=== PATIENT | female | born 1950 | race Caucasian/White ===

== ENCOUNTER 2021-12-25 10:48 | Emergency (ER) | payer BC, OTHER ==
[~2021-12-25] VITALS: Ht 167.6 cm; Wt 79.4 kg
[2021-12-25 13:26] VITALS: BP 149/84
== END 2021-12-25 13:51 | disposition home or self-care (01) ==
LOC: ER 10:48
DX: S00.33XA Contusion of nose, initial encounter (principal); S09.93XA Unspecified injury of face, initial encounter; W01.198A Fall on same level from slipping, tripping and stumbling with subsequent striking against other object, initial encounter; Y93.89 Activity, other specified; Y92.89 Other specified places as the place of occurrence of the external cause; Y99.8 Other external cause status
CPT/HCPCS: 70450; 70486

== ENCOUNTER 2024-12-16 15:03 | Inpatient (IN) | payer OTHER ==
[2024-12-16] VITALS (7 sets, daily range): BP systolic 142–153; BP diastolic 64–80; PULSE 75–88; RESP 14–18; TEMP 98.2–98.9; O2SAT 94–96
[~2024-12-16] VITALS: Ht 167.6 cm; Wt 88.6 kg
[2024-12-16] MEDS: HEPARIN SODIUM (PORCINE) 5000 UNITS/ML 1ML VIAL ONE ×2 (07:59→19:36)
--- NOTE | 2024-12-16 15:34 | ED.PDOC ---
History of Present Illness HPI Comments 73-year-old female came to the ER complaining of chest pain. Chest pain started after altercation with her dog. She started getting anxious could not stop her anxiety which brought her to the ER. She does have a history of hyper cholesterol for which she takes medication. Denies any past surgical other med ical history. Denies any other symptoms. Chief Complaint: Chest Pain Time Seen by MD: 15:12 Primary Care Provider: ketty Osorio Notes: Nurses Notes, Medications, Allergies Allergies: Coded Allergies: Codeine (Verified Allergy, Unknown, 12/25/21) Penicillins (Verified Allergy, Unknown, 12/25/21) Tetanus Toxoids (Verified Allergy, Unknown, 12/25/21) Information Source: Patient Mode of Arrival: Ambulatory Severity: Moderate Past Medical History PAST MEDICAL HISTORY: Denies Surgical History: Denies all surgeries WAFER FABRICATION TECHNICIAN History: No Pertinent WAFER FABRICATION TECHNICIAN History Family History Family History: Unknown Social History Smoker: Non-Smoker Alcohol: Denies ETOH Use Drugs: Denies Drug Use Lives In: Home Constitutional: denies: chills, diaphoresis, fatigue, fever, malaise, sweats, weakness, others EENTM: denies: blurred vision, double vision, ear bleeding, ear discharge, ear drainage, ear pain, ear ringing, eye pain, eye redness, hearing loss, mouth pain, mouth swelling, nasal discharge, nose bleeding, nose congestion, nose pain, photophobia, tearing, throat pain, throat swelling, voice changes, others Respiratory: denies: cough, hemoptysis, orthopnea, SOB at rest, shortness of breath, SOB with excertion, stridor, wheezing, others Cardiovascular: reports: chest pain; denies: dizzy spells, diaphoresis, Dyspnea on exertion, edema, irregular heart beat, left arm pain, lightheadedness, palpitations, PND, syncope, others Gastrointestinal: denies: abdomen distended, abdominal pain, blood streaked bowels, constipated, diarrhea, dysphagia, difficulty swallowing, hematemesis, melena, nausea, poor appetite, poor fluid intake, rectal bleeding, rectal pain, vomiting, others Genitourinary: denies: abnormal vagina bleeding, burning, dyspareunia, dysuria, flank pain, frequency, hematuria, incontinence, pain, , vagina discharge, urgency, others Neurological: denies: dizziness, fainting, headache, left sided numbness, left sided weakness, numbness, paresthesia, pre-existing deficit, right sided numbness, right sided weakness, seizure, speech problems, tingling, tremors, weakness, others Musculoskeletal: denies: back pain, gout, joint pain, joint swelling, muscle pain, muscle stiffness, neck pain, others Integumetry: denies: bruises, change in color, change in hair/nails, dryness, laceration, lesions, lumps, rash, wounds, others Allergic/Immunocompromised: denies: Difficulty Healing, Frequent Infections, Hives, Itching, others Hematologic/Lymphatic: denies: anemia, blood clots, easy bleeding, easy bruising, swollen glands, others Endocrine: denies: excessive hunger, excessive sweating, excessive thirst, excessive urination, flushing, intolerance to cold, intolerance to heat, unexplained weight gain, unexplained weight loss, others Psychiatric: denies: anxiety, bipolar disorder, depression, hopeless, panic disorder, schizophrenia, sleepless, suicidal, others Physical Exam General Appearance: Moderate Distress HEENT: Normal ENT Inspection, Pharynx Normal, TMs Normal Neck: Full Range of Motion, Non-Tender, Normal, Normal Inspection Respiratory: Chest Non-Tender, Lungs Clear, No Accessory Muscle Use, No Respiratory Distress, Normal Breath Sounds Cardiovascular: No Edema, No JVD, No Murmur, No Gallop, Normal Peripheral Pulses, Regular Rate/Rhythm Breast Exam: Deferred Gastrointestinal: No Organomegaly, Non Tender, No Pulsatile Mass, Normal Bowel Sounds, Soft Genitalia: Deferred Pelvic: Deferred Rectal: Deferred Extremities: No calf tenderness, Normal capillary refill, Normal inspection, Normal range of motion, Non-tender, No pedal edema Musculoskeletal : Apperance: Normal Neurologic: Alert, conche operator II-XII nml as Tested, No Motor Deficits, Normal Affect, Normal Mood, No Sensory Deficits Cerebellar Function: Normal Reflexes: Normal Skin: Dry, Normal Color, Warm Peripheral Pulses: 3+ Radial (R), 3+ Radial (L) Lymphatic: No Adenopathy Was a procedure done? Was a procedure done?: No EKG EKG : Cardiac Rhythm: NSR Differential Dx Considerations may include: Chest pain Electrolyte imbalance X-Ray, Labs, Meds, VS Vital Signs Date Time Temp Pulse Resp B/P (MAP) Pulse Ox O2 Delivery O2 Flow Rate FiO2 12/16/24 15:12 96 12/16/24 15:05 98.3 97 18 163/54 (90) 97 98.3 Lab Test 12/16/24 15:10 Range/Units Troponin I High Sensitivity 67 *H </=34 ng/L Patient alert. Complaining of chest pain. Blood pressure elevated. Answering all questions. Chest pain started after altercation with her dog. Cardiac marker elevated. Was given Lovenox. EKG does not show any acute changes. Explained to the patient. Continue monitoring. Time of 1ST Reevaluation: 16:02 Reevaluation 1ST: Unchanged Patient Education/Counseling: Diagnosis, Treatment, Prognosis Family Education/Counseling: No Family Present SEPSIS Sepsis Screen Physician Orders Electrocardigram (12/16/24 15:05) Troponin-I Hs (12/16/24 16:05) Troponin-I Hs (12/16/24 18:05) Electrocardigram (12/16/24 16:05) Electrocardigram (12/16/24 18:05) Vital Signs Date Time Temp Pulse Resp B/P (MAP) Pulse Ox O2 Delivery O2 Flow Rate FiO2 12/16/24 15:12 96 12/16/24 15:05 98.3 97 18 163/54 (90) 97 98.3 Departure 1 Departure Time of Disposition: 16:03 Impression: Primary Impression: NSTEMI (non-ST elevated myocardial infarction) Disposition: 09 ADMITTED INPATIENT Admit to: Med Surg Condition: Guarded Critical Care Note Critical Care Time?: Yes (90 min-critical care time only) Stability Stability form required: No Heart Score Heart Score: Heart Score Response (Comments) Value History Slightly Suspicious 0 EKG Normal 0 Age >65 2 Risk Factors >3 or Hx ASHD 2 Troponin Normal limit 0 Total 4 BETZY PINA MD Dec 16, 2024 15:34
[2024-12-16 16:23] LABS: Hematocrit 41.7 % (36.0-46.0); Hemoglobin 14.1 g/dL (12.2-16.2); Mean Corpuscular Hemoglobin 31.4 pg (28.0-32.0); Mean Corpuscular Volume 93.0 fL (80.0-100.0); Nucleated Red Blood Cells % 0.2 %
[2024-12-16 16:30] LABS: Chloride 107 mmol/L (98-107); Potassium 4.1 mmol/L (3.5-5.1); Sodium 141 mmol/L (136-145)
[2024-12-16 16:32] LABS: Anion Gap 11 (5-15); BUN/Creatinine Ratio 18.3 (10.0-20.0); Blood Urea Nitrogen 15 mg/dL (9-23)
[2024-12-16 16:33] LABS: Calcium 9.1 mg/dL (8.7-10.4); Carbon Dioxide 23 mmol/L (20-31); Glucose 126 mg/dL (74-106)
[2024-12-16 16:41] LABS: Urine Protein, UAD Negative (Negative)
[2024-12-16] MEDS: ENOXAPARIN SOD 80 MG/0.8ML SYRINGE SC ONE (16:42)
[2024-12-16] MEDS: fentaNYL CITRATE 100 MCG/2 ML VL ONE (19:31)
[2024-12-16] MEDS: ANGIOMAX 250 MG VIAL IV ONE (19:31)
[2024-12-16] MEDS: VERAPAMIL 2.5MG/ML INJ 2ML VIAL IV ONE (19:31)
[2024-12-16] MEDS: LIDOCAINE 2%HCL (LOCAL ANESTH.) INJ 20ML MDV ONE (19:32)
[2024-12-16] MEDS: SODIUM CHL 0.9% 50 ML ONE (19:32)
[2024-12-16] MEDS: MIDAZOLAM HCL 2MG/2ML 2ml VIAL (1mg/ml) ONE (19:32)
[2024-12-16] MEDS: HEPARIN SODIUM (PORCINE) 5000 UNITS/ML 1ML VIAL IV ONE (19:44)
[2024-12-16] MEDS ORDERED: ONDANSETRON HCL 4 MG/2 ML VIAL IV PRN ×2 (19:45→22:45)
[2024-12-16] MEDS ORDERED: NITROGLYCERIN 0.4 MG SL TAB SL PRN ×2 (19:45)
[2024-12-16] MEDS ORDERED: ACETAMINOPHEN 325 MG TAB PO PRN (19:45)
[2024-12-16] MEDS ORDERED: MORPHINE SULFATE 4 MG/ML SYR/VIAL IV PRN ×2 (19:45→22:45)
[2024-12-16] MEDS: IODIXANOL 320MG/ML 100ML BTL IV ONE (19:46)
--- NOTE | 2024-12-16 19:56 | DVHHP2 ---
History of Present Illness Reason for Visit: Chest pain History of Present Illness 73-year-old female past medical history hyperlipidemia surgical history hysterectomy gallbladder surgery chief complaint patient states that she was out in his apartment walk in her puppy people came out of nowhere and ran after her puppy she states she was running from the pit bull with her puffy which caused her to have a stressful event she went home and then she started having midsternal chest pain radiates to her left chest wall and up to the jaw felt like a pressure pain she had no weakness no dizziness no tearing sensation in her chest she has no history [place] in the past no family history of [place] patient has not had any cardiac workup just a EKG in March of 2024 primary doctor stated everything was fine. Patient is lying in his bed a little afraid because all the things that is going on but EKG shows STEMI patient will be sent directly to the manager labor relations with Dr. Silva to procede will admit to [facility] after procedure is completed and will follow with cards team Past Medical History See HPI above Past Surgical History See HPI above Family History Reviewed, non-contributory to the management of this case. Past Social History The patient lives at home, denies smoking, alcohol or illicit drugs abuse. Review of Systems Constitutional: No: Fever, Chills, Sweats, Weakness, Malaise, Other Eyes: No: Pain, Vision change, Conjunctivae inflammation, Eyelid inflammation, Other, Redness Respiratory: Shortness of breath; No: Cough, Dry, SOB with excertion, Wheezing, Hemoptysis, Pleuritic Pain, Sputum, Wheezing, Other Cardiovascular: Chest Pain; No: Palpitations, Orthopnea, Paroxysmal Noc. Dyspnea, Edema, Lt Headedness, Other Gastrointestinal: No: Nausea, Vomiting, Abdominal Pain, Diarrhea, Constipation, Melena, Hematochezia, Other Genitourinary: No Dysuria, No Frequency, No Incontinence, No Hematuria, No Retention, No Other Musculoskeletal: No: other, neck pain, shoulder pain, arm pain, back pain, hand pain, leg pain, foot pain Skin: No: Rash, Lesions, Jaundice, Bruising, Other Neurological: No: Weakness, Numbness, Incoordination, Change in speech, Confusion, Seizures, Other Allergies: Coded Allergies: Codeine (Verified Allergy, Unknown, 12/25/21) Penicillins (Verified Allergy, Unknown, 12/25/21) Tetanus Toxoids (Verified Allergy, Unknown, 12/25/21) Exam Vital Signs Vital Signs Date Time Temp Pulse Resp B/P (MAP) Pulse Ox O2 Delivery O2 Flow Rate FiO2 12/16/24 18:01 87 9 159/66 (97) 97 12/16/24 17:30 Room Air* 0 21 12/16/24 16:24 98.2 98.2 General Appearance: Alert, Oriented X3, Cooperative, No acute distress HEENT: Atraumatic, PERRLA, EOMI, Mucous membr. moist/pink Respiratory: Clear to auscultation, Normal air movement Cardiovascular: Regular rate, Normal S1, Normal S2, No murmurs Abdominal: Normal bowel sounds, Soft, No tenderness, No hepatospenomegaly, No masses Extremities: No clubbing, No cyanosis, No edema, Normal pulses, No tenderness/swelling Skin: No rashes, No breakdown, No significant lesion Neuro: Other (Neuro nonfocal) Psych/Mental Status: Mental status NL, Mood NL Labs/Xrays Patient labs CBC CMP troponin Mag phosphorus order EKG which consistent with STEMI Labs Test 12/16/24 18:00 12/16/24 16:31 12/16/24 15:10 Range/Units Troponin I High Sensitivity 1501 *H </=34 ng/L Urine Color Colorless Yellow Urine Clarity Clear Clear Urine pH 7.0 5.0-9.0 Urine Specific [place] 1.007 1.001-1.035 Urine Protein Negative Negative Urine Ketones Negative Negative Urine Blood Negative Negative /uL Urine Nitrite Negative Negative Urine Bilirubin Negative Negative Urine Urobilinogen Normal Negative mg/dL Urine Leukocyte Esterase 2+ Negative /uL Urine RBC 1 0 - 4 /hpf Urine Microscopic WBC 2 0-5 /HPF Urine Squamous Epithelial Cells Few <5 /hpf Urine Bacteria Few H None Seen /hpf Urine Glucose Normal Normal mg/dL White Blood Count 4.5 4.4-10.8 10^3/uL Red Blood Count 4.49 4.0-5.20 10^6/uL Hemoglobin 14.1 12.2-16.2 g/dL Hematocrit 41.7 36.0-46.0 % Mean Corpuscular Volume 93.0 80.0-100.0 fL Mean Corpuscular Hemoglobin 31.4 28.0-32.0 pg Mean Corpuscular Hemoglobin Concent 33.7 32.0-36.0 g/dL Red Cell Distribution Width 12.2 11.8-14.3 % Platelet Count 220 140-450 10^3/uL Mean Platelet Volume 8.8 6.9-10.8 fL Neutrophils (%) (Auto) 35.3 L 37.0-80.0 % Lymphocytes (%) (Auto) 47.6 10.0-50.0 % Monocytes (%) (Auto) 8.9 0.0-12.0 % Eosinophils (%) (Auto) 7.5 H 0.0-7.0 % Basophils (%) (Auto) 0.7 0.0-2.0 % Neutrophils # (Auto) 1.6 1.6-8.6 10 ^3/uL Lymphocytes # (Auto) 2.1 0.4-5.4 10 ^3/uL Monocytes # (Auto) 0.4 0-1.3 10 ^3/uL Eosinophils # (Auto) 0.3 0-0.8 10 ^3/uL Basophils # (Auto) 0 0-0.2 10 ^3/uL Nucleated Red Blood Cells 0.2 % Sodium Level 141 136-145 mmol/L Potassium Level 4.1 3.5-5.1 mmol/L Chloride Level 107 98-107 mmol/L Carbon Dioxide Level 23 20-31 mmol/L Anion Gap 11 5-15 Blood Urea Nitrogen 15 9-23 mg/dL Creatinine 0.82 0.550-1.02 mg/dL Glomerular Filtration Rate Calc 76 >90 mL/min BUN/Creatinine Ratio 18.3 10.0-20.0 Serum Glucose 126 H 74-106 mg/dL Calcium Level 9.1 8.7-10.4 mg/dL Assessment/Plan Assessment/Plan acute nstemi/chest pain current ekg nstemi trop negative x3 ordered ordered echo fu results dr silva to take pt to manager labor relations ordered heparin ordered asa, atorvastin ordered morphine and nitro for chest pain control pain control pt to go to manager labor relations/Initiate CP protocol ordered Aspirin, atorvastatin, by cards in er ordered nitro as needed for chest pain Oxygen as needed can order by rounding lizabeth Lipid panel, Lifestyle modification hld ordered lipitor fen/ppx heparin npo until cleared by cards no gi ppx since pt without hx of gerds or gi bleed plan admit to [facility] post cath and cards to follow Plan discussed with: Patient Date of Service: Dec 16, 2024 Billing Provider: MARY GRACE VALENTINE DNP Common Visit Codes: [id number] INP/OBS CARE (HIGH), 97048-[id number] CARE 30- 74 MIN (Total critical care time: Approximately 45 minutes This critical care time included obtaining a history; examining the patient; pulse oximetry; ordering and review of studies; arranging urgent treatment with development of a management plan; evaluation of patient's response to treatment; frequent reassessment; and, discussions with other providers.) MARY GRACE VALENTINE DNP Dec 16, 2024 19:56
--- NOTE | 2024-12-16 20:40 | DVHINCON2 ---
Date Seen: Dec 16, [address] Pearce Reason for Consultation Chest pain History of Present Illness 73-year-old lady who was walking her dog when they were confronted by pit bull. The patient began experiencing chest pain. Her symptoms increased in severity and intensity. She came to the emergency room. She was found to have abnormal ST segment changes and elevated troponins for which cardiac evaluation was requested. Code STEMI was called. Patient was sent to the cardiac catheterization laboratory. Past Medical History No significant past medical history of significance. No previous history of CAD hypertension diabetes thyroid disorders bleeding disorders or endocrinopathies. Past Surgical History Negative past surgical history Allergies: Coded Allergies: Codeine (Verified Allergy, Unknown, 12/25/21) Penicillins (Verified Allergy, Unknown, 12/25/21) Tetanus Toxoids (Verified Allergy, Unknown, 12/25/21) Current Medications Current Medications Medications (Trade) Dose Ordered Sig/Amos Route PRN Reason Start Time Stop Time Status Last Admin Aspirin 81 mg DAILY PO 12/17/24 10:00 UNV Atorvastatin Calcium (Lipitor) 40 mg HS PO 12/16/24 22:00 UNV Morphine Sulfate 2 mg Q30MP PRN IV FOR CHEST PAIN 12/16/24 19:45 UNV Acetaminophen (Tylenol Tablet) 325 mg Q4HP PRN PO FOR HEADACHE 12/16/24 19:45 UNV Docusate Sodium (Colace Capsule) 100 mg DAILY PO 12/17/24 10:00 UNV Nitroglycerin (Ntrostat Sublingual) 0.4 mg Q5MINP PRN SL FOR CHEST PAIN 12/16/24 19:45 UNV Ondansetron HCl (Zofran) 4 mg Q4HP PRN IV NAUSEA / VOMITING 12/16/24 19:45 UNV Nitroglycerin (Ntrostat Sublingual) 0.4 mg Q5MINP PRN SL FOR CHEST PAIN 12/16/24 19:45 UNV Review of Systems Review of systems from a constitutional standpoint negative for fevers chills or weight loss. Cardiac and respiratory as noted above. No history of GI or musculoskeletal abnormalities. Hematologic oncologic and dermatologic negative. Vital Signs Vital Signs Date Time Temp Pulse Resp B/P (MAP) Pulse Ox O2 Delivery O2 Flow Rate FiO2 12/16/24 20:20 98.9 84 18 151/77 (101) 94 98.9 12/16/24 17:30 Room Air* 0 21 Physical Exam HEENT examination is otherwise unremarkable. She is thin. Bitemporal wasting. Enophthalmos noted. Orally well hydrated. Trachea central neck supple thyroid is nonpalpable is no jugular distention no carotid bruits. Lungs reveal good air entry no rales or rhonchi. Heart exam reveals regular S1- S2 soft S4. Abdominal examination is unremarkable. Extremities show adequate perfusion without clubbing cyanosis no edema. Neurologically intact. Integumentary is otherwise within normal limits. Labs/Diagnostic Data Labs Test 12/16/24 18:00 12/16/24 16:31 12/16/24 15:10 Range/Units Troponin I High Sensitivity 1501 *H </=34 ng/L Urine Color Colorless Yellow Urine Clarity Clear Clear Urine pH 7.0 5.0-9.0 Urine Specific [place] 1.007 1.001-1.035 Urine Protein Negative Negative Urine Ketones Negative Negative Urine Blood Negative Negative /uL Urine Nitrite Negative Negative Urine Bilirubin Negative Negative Urine Urobilinogen Normal Negative mg/dL Urine Leukocyte Esterase 2+ Negative /uL Urine RBC 1 0 - 4 /hpf Urine Microscopic WBC 2 0-5 /HPF Urine Squamous Epithelial Cells Few <5 /hpf Urine Bacteria Few H None Seen /hpf Urine Glucose Normal Normal mg/dL White Blood Count 4.5 4.4-10.8 10^3/uL Red Blood Count 4.49 4.0-5.20 10^6/uL Hemoglobin 14.1 12.2-16.2 g/dL Hematocrit 41.7 36.0-46.0 % Mean Corpuscular Volume 93.0 80.0-100.0 fL Mean Corpuscular Hemoglobin 31.4 28.0-32.0 pg Mean Corpuscular Hemoglobin Concent 33.7 32.0-36.0 g/dL Red Cell Distribution Width 12.2 11.8-14.3 % Platelet Count 220 140-450 10^3/uL Mean Platelet Volume 8.8 6.9-10.8 fL Neutrophils (%) (Auto) 35.3 L 37.0-80.0 % Lymphocytes (%) (Auto) 47.6 10.0-50.0 % Monocytes (%) (Auto) 8.9 0.0-12.0 % Eosinophils (%) (Auto) 7.5 H 0.0-7.0 % Basophils (%) (Auto) 0.7 0.0-2.0 % Neutrophils # (Auto) 1.6 1.6-8.6 10 ^3/uL Lymphocytes # (Auto) 2.1 0.4-5.4 10 ^3/uL Monocytes # (Auto) 0.4 0-1.3 10 ^3/uL Eosinophils # (Auto) 0.3 0-0.8 10 ^3/uL Basophils # (Auto) 0 0-0.2 10 ^3/uL Nucleated Red Blood Cells 0.2 % Sodium Level 141 136-145 mmol/L Potassium Level 4.1 3.5-5.1 mmol/L Chloride Level 107 98-107 mmol/L Carbon Dioxide Level 23 20-31 mmol/L Anion Gap 11 5-15 Blood Urea Nitrogen 15 9-23 mg/dL Creatinine 0.82 0.550-1.02 mg/dL Glomerular Filtration Rate Calc 76 >90 mL/min BUN/Creatinine Ratio 18.3 10.0-20.0 Serum Glucose 126 H 74-106 mg/dL Calcium Level 9.1 8.7-10.4 mg/dL Magnesium Level 2.2 1.6-2.6 mg/dL Assessment Abnormal EKG with abnormal troponins. Patient with chest pain. Consider ST- elevation myocardial infarction. Plan/Recommendation Patient will be sent to the cardiac catheterization laboratory soon as possible. Risks and benefits explained. Patient agrees to undergo cardiac catheterization. Plan discussed with: Patient, Spouse NYHA Physical activity limitations: Class1(None)absent sob, Date of Service: Dec 16, 2024 Billing Provider: GIANNA BUTLER Sr., MD Cardiology Common Codes: [id number] INP/OBS CARE (High) GIANNA BUTLER Sr., MD Dec 16, 2024 20:40
--- NOTE | 2024-12-16 20:45 | DVHOP2 ---
Operative Report - 2 Report Details Date: 12/16/24 Preop Diagnosis: CAD Postop Diagnosis: Normal coronaries Surgeon: Gianna Silva MD Anesthesiologist: Conscious sedation Anesthesia: Mac, Local Consent: The patient was informed of the risks and benefits of the procedure. These include but are not limited to complications of anesthesia, postoperative infection, incomplete relief of symptoms, recurrence of symptoms, damage to blood vessels, nerves and tendons, deep venous thrombosis, pulmonary embolism and possible need for repeat surgery in the future. Complications: No complications Findings: Normal coronaries Indications for Surgery: Chest pain, abnormal troponins Name of Procedure Performed Left heart catheterization. Bilateral cine coronary angiography. Left ventriculography. Procedure Details Procedure Details: Prior local anesthesia with 2% lidocaine to the right wrist and full informed consent obtained the patient was prepped and draped in usual fashion followed by placement of a six German sheath into the radial artery through which a 3.0 EBU guiding catheter was placed and used to perform ventriculography and cannulation of both right and left coronary ostia without complications. Hemodynamics: Aortic blood pressure was 130/70. End-diastolic pressure was eight. There was no gradient across the aortic valve on pullback. Coronary anatomy: The RCA is a large vessel it is normal in its proximal mid and distal segments. The PDA and posterolateral branches are normal. Left main is large and normal. Left anterior descending is a large vessel with two diagonals free of significant disease. The circumflex is a large vessel with two marginals free of significant disease. This is codominant. Ventriculography was performed in the MAURER projection with an EF of about 65% Impression: Normal left ventricular end-diastolic pressure at rest. Normal left ventricular ejection fraction. No significant coronary artery disease. Recommendations: We will continue with medical therapy and risk factor modification to continue. Condition Good Disposition Still a Patient Date of Service: Dec 16, 2024 Billing Provider: GIANNA SILVA Sr., MD Cardiology Common Codes: [id number] INP/OBS CARE (High) Cardiology Procedure Codes: 78081-VNXY HEART CATH W/INTRA INJ GIANNA SILVA Sr., MD Dec 16, 2024 20:45
[2024-12-16] MEDS ORDERED: ATORVASTATIN 20 MG TAB PO SCH (22:00)
--- NOTE | 2024-12-16 22:07 | DVH ---
CHEST RADIOGRAPH Indication: CP Technique: Single frontal view of the chest was obtained Comparison: None FINDINGS: Lines and Tubes: None Lungs: No focal consolidation. Pleura: No effusion. No pneumothorax. Cardiomediastinal contours: Unremarkable Bones: No acute osseous abnormality. IMPRESSION: 1. No acute cardiopulmonary disease.
[2024-12-16] MEDS: ATORVASTATIN 20 MG TAB ONE (23:00)
[2024-12-16] MEDS: ATORVASTATIN 20 MG TAB PO ONE (23:19)
[2024-12-17] VITALS (8 sets, daily range): BP systolic 123–175; BP diastolic 67–88; PULSE 77–88; RESP 18–19; TEMP 96.8–98.8; O2SAT 96–99
[2024-12-17] MEDS ORDERED: ATOR10TA52 PO (01:08)
[2024-12-17] MEDS: ACETAMINOPHEN 325 MG TAB PO PRN (06:52)
[2024-12-17 06:56] LABS: Hematocrit 41.4 % (36.0-46.0); Hemoglobin 14.3 g/dL (12.2-16.2); Mean Corpuscular Hemoglobin 31.9 pg (28.0-32.0); Mean Corpuscular Volume 92.6 fL (80.0-100.0); Nucleated Red Blood Cells % 0.0 %
--- NOTE | 2024-12-17 07:00 | ECG ---
[facility] Test Date: 2024-12-16 Test Time: 19:02:41 Pat Name: SUHA THOMPSON Department: ED Room: [facility]6T A Gender: F Supervisor Boarding: nena : 1950 Requested By: JULIANA OLSON Order Number: [id number] Reading MD: Mian Silva Measurements Intervals [place] Rate: 96 P: 65 WI: 161 QRS: 48 QRSD: 91 T: 55 QT: 367 QTc: 464 Interpretive Statements Sinus rhythm Low voltage, precordial leads Electronically Signed On 12-18-2024 20:10:36 PDT by Mian Silva Please click the below link to view image of tracing.
[2024-12-17 07:23] LABS: Alanine Aminotransferase 11 U/L (7-40); Albumin 4.2 g/dL (3.2-4.8); Alkaline Phosphatase 70 U/L (46-116); Calcium 9.7 mg/dL (8.7-10.4); Carbon Dioxide 26 mmol/L (20-31); Glucose 102 mg/dL (74-106)
[2024-12-17 07:24] LABS: Anion Gap 8 (5-15); BUN/Creatinine Ratio 18.8 (10.0-20.0); Bilirubin, Total 0.8 mg/dL (0.2-1.0); Blood Urea Nitrogen 13 mg/dL (9-23); Potassium 4.1 mmol/L (3.5-5.1); Sodium 144 mmol/L (136-145); Total Protein 6.3 g/dL (5.7-8.2)
[2024-12-17 07:30] LABS: Chloride 110 mmol/L (98-107)
[2024-12-17] MEDS: NITROGLYCERIN 0.4 MG SL TAB SL PRN (09:22)
[2024-12-17] MEDS: DOCUSATE SOD 100 MG CAP PO SCH (09:34)
[2024-12-17] MEDS ORDERED: DOCUSATE SOD 100 MG CAP PO SCH (10:00)
--- NOTE | 2024-12-17 11:01 | DVHPN2 ---
Subjective The patient is seen and examined at bedside. Complain of chest pain. Reviewed: Care Plan, H&P, Labs, Medications, Previous Orders, Radiology Changes from previous H/P or p: No Changes Eyes: No Pain, No Vision change, No Conjunctivae inflammation, No Eyelid inflammation, No Other, No Redness Cardiovascular: Chest Pain; No Palpitations, No Orthopnea, No Paroxysmal Noc. Dyspnea, No Edema, No Lt Headedness, No Other Respiratory: No Cough, No Dry; Shortness of breath; No SOB with excertion, No Wheezing, No Hemoptysis, No Pleuritic Pain, No Sputum, No Other Gastrointestinal: No Nausea, No Vomiting, No Abdominal Pain, No Diarrhea, No Constipation, No Melena, No Hematochezia, No Other Genitourinary: No Dysuria, No Frequency, No Incontinence, No Hematuria, No Retention, No Other Musculoskeletal: No other, No neck pain, No shoulder pain, No arm pain, No back pain, No hand pain, No leg pain, No foot pain Skin: No Rash, No Lesions, No Jaundice, No Bruising, No Other Objective Vitals Vital Signs Date Time Temp Pulse Resp B/P (MAP) Pulse Ox O2 Delivery O2 Flow Rate FiO2 12/17/24 10:17 139/79 12/17/24 08:00 98.7 12/17/24 05:00 79 18 97 12/16/24 23:56 Room Air* 0 21 Intake/Output Intake and Output 12/17/24 07:00 Intake Total 100 ml Balance 100 ml Intake Oral 100 ml # Voids 1 General Appearance: Alert, Oriented X3, Cooperative, No acute distress HEENT: PERRLA, EOMI, Mucous membr. moist/pink Neck: Supple Lungs: Clear to auscultation, Normal air movement Cardiovascular: Regular rate, Normal S1, Normal S2, No murmurs, Gallops, Rubs Abdomen: Normal bowel sounds, Soft, No tenderness Neuro: Cranial nerves 3-12 NL Psych/Mental Status: Mental status NL Medications Current Medications Medications Dose Ordered Sig/Amos Route Start Time Stop Time Status Last Admin Dose Admin Aspirin 81 mg DAILY PO 12/17/24 10:00 12/17/24 09:23 81 MG Atorvastatin Calcium 40 mg HS PO 12/17/24 22:00 Morphine Sulfate 2 mg Q30MP PRN IV 12/16/24 22:45 Acetaminophen 325 mg Q4HP PRN PO 12/16/24 22:45 12/17/24 06:52 325 MG Docusate Sodium 100 mg DAILY PO 12/17/24 10:00 12/17/24 09:34 100 MG Ondansetron HCl 4 mg Q4HP PRN IV 12/16/24 22:45 Nitroglycerin 0.4 mg Q5MINP PRN SL 12/16/24 22:45 12/17/24 09:28 0.4 MG Laboratory Results Laboratory Tests 12/17/24 06:20 Chemistry Test 12/16/24 15:10 12/17/24 06:20 Calcium Level 9.1 mg/dL (8.7-10.4) 9.7 mg/dL (8.7-10.4) Magnesium Level 2.2 mg/dL (1.6-2.6) Albumin 4.2 g/dL (3.2-4.8) Total Protein 6.3 g/dL (5.7-8.2) LFT Test 12/17/24 06:20 Alanine Aminotransferase (ALT) 11 U/L (7-40) Alkaline Phosphatase 70 U/L (46-116) Aspartate Amino Transferase (AST) 24 U/L (<34) Total Bilirubin 0.8 mg/dL (0.2-1.0) Urinalysis Test 12/16/24 16:31 Urine Color Colorless (Yellow) Urine Clarity Clear (Clear) Urine pH 7.0 (5.0-9.0) Urine Specific [place] 1.007 (1.001-1.035) Urine Protein Negative (Negative) Urine Ketones Negative (Negative) Urine Blood Negative /uL (Negative) Urine Nitrite Negative (Negative) Urine Bilirubin Negative (Negative) Urine Urobilinogen Normal mg/dL (Negative) Urine Leukocyte Esterase 2+ /uL (Negative) Urine RBC 1 /hpf (0 - 4) Urine Microscopic WBC 2 /HPF (0-5) Urine Squamous Epithelial Cells Few /hpf (<5) Urine Bacteria Few /hpf (None Seen) H Urine Glucose Normal mg/dL (Normal) Labs and/or images reviewed: Labs reviewed by me Assessment/Plan Assessment/Plan acute nstemi/chest pain status post cardiac catheterization showed clean vessel Hyperlipidemia Continuing current management. Per cardiac catheterization reports the patient had clean vessel. Normal left ventricular end-diastolic pressure at rest. Normal left ventricular ejection fraction of 65%. No significant coronary artery disease.Discussed with the patient regarding to angina including Prinzmetal angina. Continuing with Lipitor. Continuing with aspirin. Addendum: Per Dr. Melanie Zaragoza the patient belongs to his hospitalist group. And we will transfer the patient to Dr Sterling Zaragoza service Plan discussed with: Patient My Orders Orders - RAHEL HUYNH MD Procedure Category Date Status Time * Cardiology Consult CONS 12/17/24 Transmitted 10:28 Date of Service: Dec 17, 2024 Billing Provider: RAHEL HUYNH MD Common Visit Codes: [id number] INP/OBS CARE(HIGH) RAHEL HUYNH MD Dec 17, 2024 11:01
--- NOTE | 2024-12-17 13:52 | DVHPNRES ---
Progress Note Date Seen: Dec 17, 2024 Resident Creating Document: RAYO SEWELL RESIDENT Medical Necessity Reason Pt with a Central, PICC or Fol: No Subjective Review of Systems Patient is a 73-year-old female with past medical history of dyslipidemia, who comes in due to chest pain. According to the patient, yesterday on 12/16/2024 while she was walking her small dog she was attacked by a pit bull dog. Per patient it was an extremely violent encounter, she flung around her dog with a its leash on, in order to protect the dog from being attacked by the pit bull Patient notes she did fall down to her knees but denies any head trauma. Patient says shortly after she went home and felt like she was having an anxiety attack however was persistent and prolonged which is what prompted this visit to the hospital. Patient notes that she had an episode of chest pain this morning as well which she describes as a growing/expanding pain localized to the midepigastrium with radiation to the left chest, neck and ear and was 4/10 intensity and relieved by nitroglycerin. Patient also notes some difficulty finding words and is AO x2 which is not her baseline per daughters at bedside. On review of systems patient is denying any active ongoing complaints. Patient was noted to have serial troponin 67, 464, 1500 and she subsequently underwent left heart catheterization on 12/16/24 which showed no coronary artery disease. Objective vital signs Vital Sign Date Time Temp Pulse Resp B/P (MAP) Pulse Ox O2 Delivery O2 Flow Rate FiO2 12/17/24 10:17 139/79 12/17/24 09:00 98.2 78 18 99 98.2 12/17/24 08:00 Room Air* 0 21 Total Intake and Output 12/16/24 12/16/24 12/17/24 15:00 23:00 07:00 Intake Total 100 ml Balance 100 ml medications Current Medications Medications Dose Ordered Sig/Amos Route Start Time Stop Time Status Last Admin Dose Admin Aspirin 81 mg DAILY PO 12/17/24 10:00 12/17/24 09:23 81 MG Atorvastatin Calcium 40 mg HS PO 12/17/24 22:00 Morphine Sulfate 2 mg Q30MP PRN IV 12/16/24 22:45 Acetaminophen 325 mg Q4HP PRN PO 12/16/24 22:45 12/17/24 06:52 325 MG Docusate Sodium 100 mg DAILY PO 12/17/24 10:00 12/17/24 09:34 100 MG Ondansetron HCl 4 mg Q4HP PRN IV 12/16/24 22:45 Nitroglycerin 0.4 mg Q5MINP PRN SL 12/16/24 22:45 12/17/24 09:28 0.4 MG Examination General Appearance: Cooperative. Well developed. Well nourished. NAD Head Exam: Normal inspection Neck Exam: Normal inspection. Non-tender. Normal alignment Pulmonary/Respiratory: Chest non-tender. Clear bilateral breath sounds, no crackles, no wheezing. Cardiovascular/Chest: Regular rate and rhythm. No murmurs. No JVD. Peripheral Pulses: 2+ Radial (R). 2+ Radial (L). 2+ Pedal (R). 2+ Pedal (L) Abdominal Exam: Normal bowel sounds. Soft. normal abdomen, no visible veins, Nontender. No hepatospenomegaly. No masses Ankle Exam: Negative ankle edema Lower extremities: Negative lower extremity edema Neuro/Mental Status: A&O x2-3. Coherent. Skin Exam: Normal inspection. Normal color. Warm. Dry laboratory and microbiology Laboratory Tests 12/17/24 06:20 Test 12/17/24 06:20 Range/Units Serum Glucose 102 74-106 mg/dL Labs and/or images reviewed: Labs reviewed by me, Image(s) reviewed by me Problem List/Assessment/Plan Problem List/Assessment/Plan Chest pain, ruled out ACS Elevated troponins, no obstructive CAD on angiogram, consistent with [place] Dyslipidemia Essential hypertension, likely new diagnosis patient unaware Plan: - continue risk factor management - counseled extensively about lifestyle modifications including diet and activity - monitor uncontrolled blood pressure - outpatient follow up with cardiology recommended Thank you so much for the opportunity to consult on your patient. Cardiology team will sign off. In case of any questions or concerns please feel free to reach out. Plan discussed with Dr. Butler Plan discussed with: Patient, Daughter, Other (RN) My Orders My Orders Orders - RAYO SEWELL RESIDENT Procedure Category Date Status Time Creatine Kinase LAB 12/17/24 Logged 12:[address] 12/17/24 Logged 13:38 Visit Coding Cardiology RES Date of Service: Dec 17, 2024 Billing Provider: GIANNA BUTLER Sr., MD Cardiology Common Codes: [id number] HOSP CARE(High SEWELL,EMAN RESIDENT Dec 17, 2024 13:52
--- NOTE | 2024-12-17 15:16 | DVH ---
CT HEAD WITHOUT CONTRAST Indication: increasing confusion EXAM DATE: 12/17/2024 02:24 PM COMPARISON: HEAD WITHOUT CONTRAST on DOS: 12/25/21 TECHNIQUE: CT of the head without intravenous contrast. RADIATION DOSE: CTDIvol: 57.5 mGy, DLP: 1018.09 mGy*cm FINDINGS: There is no intracranial hemorrhage. There is no extra-axial fluid, mass, mass effect or midline shif t. The ventricles are midline and normal in size. Basilar cisterns are patent. There are moderate to advanced periventricular and subcortical white matter chronic microvascular ischemic changes. The paranasal sinuses and mastoids are well-pneumatized. Imaged portion of the orbits are unremarkabl e. IMPRESSION: No intracranial hemorrhage or mass effect. Moderate to advanced chronic microvascular ischemic changes.
[2024-12-17] MEDS: BISACODYL 10 MG RECT SUPP PR PRN (16:36)
[2024-12-17 18:07] LABS: Triglycerides 99 mg/dL (< 150)
[2024-12-17 18:08] LABS: Cholesterol 139 mg/dL (< 200); HDL Cholesterol 52 mg/dL (40-59)
[2024-12-17] MEDS: dilTIAZem 120MG ER CAP PO ONE (18:39)
--- NOTE | 2024-12-17 19:56 | DVHSR ---
APPROVED REPORT EXAM: Two-dimensional and M-mode echocardiogram with Doppler and color Doppler. Blood Pressure: 133/79 mmHg INDICATION Chest Pain DIMENSIONS LVDd3.6 (3.8-5.7cm)LA (2D)3.4 (1.9-4.0cm)Aortic Root2.7 (2.0-3.7cm) LVDs2.4 (2.5-4.0cm)LA (MM) (1.9-4.0cm)Aortic Cusp Exc1.7 (1.5-2.0cm) EF (%) 60.0 (55-70%)Rt. Atrium4.1 (1.9-4.0cm)Asc. Aorta cm IVSd1.0 (0.7-1.1cm)RV (D)3.4 (1.8-2.4cm) PWd1.0 (0.7-1.1cm) Mitral Valve MitralMitral Stenosis E wave0.66m/sMV Mean GR.mmHg A wave0.84m/sMV Peak GR.mmHg E/A ratio0.82D MVAcm2 DECEL [id number] 1/2 Timems Aortic Valve Aortic ValveAortic Stenosis V11.00m/Dre Mean GR.4mmHg V21.30m/Dre Peak GR.7mmHg LVOT Diameter2.0 (1.8-2.4cm)Doppler AVA2.42cm2 Other Information Technically limited study due to body habitus. Conclusion MILD LVH AND MILD LV DIASTOLIC DYSFUNCTION LV EF IS 65% NORMAL VALVES NO EFFUSION NORMAL RV FUNCTION AND SIZE
[2024-12-17] MEDS: ATORVASTATIN 20 MG TAB PO SCH (21:19)
[2024-12-18] VITALS (7 sets, daily range): BP systolic 132–146; BP diastolic 68–89; PULSE 65–86; RESP 16–20; TEMP 97.3–98.4; O2SAT 95–99
[2024-12-18] MEDS: dilTIAZem 120MG ER CAP PO SCH (09:52)
--- NOTE | 2024-12-18 11:03 | ECG ---
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
--- NOTE | 2024-12-18 13:45 | DVHINCON2 ---
Date of service: Dec 17, 2024 Referring Physician Aurora Barrios DNP Reason for Consultation Medical management History of Present Illness Ruthann Breaux is a 73-year-old female with a Past Medical History pertinent for Hyperlipidemia who presented to the hospital on 12/16/24 with complaint of midsternal chest pain radiating to her left chest wall and up to the jaw. Patient states pain felt like pressure. Denies any weakness or dizziness at that time. Pain developed while she was walking her dog when they were confronted by a pit bull. While in ED, patient was found to have abnormal ST segment changes and elevated troponins 67, 464, 1500. Code STEMI was called. Straw Baler, Dr. Silva, consulted and patient underwent left heart catheterization; bilateral cine coronary angiography; left ventriculography.Per report: Normal left ventricular end-diastolic pressure at rest; normal left ventricular ejection fraction; no significant coronary artery disease. Echocardiogram performed yesterday reported: Mild LVH and mild LV diastolic dysfunction; LV EF is 65%; normal valves; no effusion; normal RV function and size. Patient complains of feeling lightheaded. With some confusion. CT is ordered. Family History: Patient reports no known family medical history. Allergies: Coded Allergies: Codeine (Verified Allergy, Unknown, 12/25/21) Penicillins (Verified Allergy, Unknown, 12/25/21) Tetanus Toxoids (Verified Allergy, Unknown, 12/25/21) Home Meds Reported Medications Atorvastatin Calcium (ATORVASTATIN CALCIUM) 10 Mg Tab, 1 TAB PO DAILY, #30 TAB 5 Refills 12/17/24 Current Medications Current Medications Medications (Trade) Dose Ordered Sig/Amos Route PRN Reason Start Time Stop Time Status Last Admin Atorvastatin Calcium (Lipitor) 40 mg HS PO 12/17/24 22:00 12/17/24 21:19 Bisacodyl (Dulcolax Suppository) 10 mg DAILYP PRN OH FOR CONSTIPATION 12/17/24 16:00 12/17/24 16:36 Diltiazem HCl (Cardizem ER Capsule) 120 mg DAILY PO 12/18/24 10:00 12/18/24 09:52 Review of Systems Review of Systems Constitutional: Negative for fevers chills or weight loss. Cardiac and respiratory as noted above. No history of GI or musculoskeletal abnormalities. Hematologic oncologic and dermatologic negative. Vital Signs Vital Signs Date Time Temp Pulse Resp B/P (MAP) Pulse Ox O2 Delivery O2 Flow Rate FiO2 12/18/24 09:52 81 146/68 12/18/24 09:00 97.3 20 98 97.3 12/18/24 08:10 Room Air* 0 21 Physical Exam Vitals and nursing notes reviewed. General Appearance: Cooperative, No acute distress HEENT: Atraumatic, PERRLA, EOMI, Mucous membr. moist/pink Respiratory: Clear to auscultation, Normal air movement Cardiovascular: Regular rate, Normal S1, Normal S2, No murmurs Abdominal: Normal bowel sounds, Soft, No tenderness, No hepatospenomegaly, No masses Extremities: No clubbing, No cyanosis, No edema, Normal pulses, No tenderness/swelling Skin: No rashes, No breakdown, No significant lesion Neuro: Alert, Oriented X3, Other (Neuro nonfocal) Psych/Mental Status: Mental status NL, Mood NL Labs/Diagnostic Data Labs Test 12/17/24 06:20 12/16/24 18:00 12/16/24 16:31 12/16/24 15:10 Range/Units White Blood Count 4.4 4.4-10.8 10^3/uL Red Blood Count 4.47 4.0-5.20 10^6/uL Hemoglobin 14.3 12.2-16.2 g/dL Hematocrit 41.4 36.0-46.0 % Mean Corpuscular Volume 92.6 80.0-100.0 fL Mean Corpuscular Hemoglobin 31.9 28.0-32.0 pg Mean Corpuscular Hemoglobin Concent 34.5 32.0-36.0 g/dL Red Cell Distribution Width 12.3 11.8-14.3 % Platelet Count 219 140-450 10^3/uL Mean Platelet Volume 8.5 6.9-10.8 fL Neutrophils (%) (Auto) 59.0 37.0-80.0 % Lymphocytes (%) (Auto) 29.0 10.0-50.0 % Monocytes (%) (Auto) 8.8 0.0-12.0 % Eosinophils (%) (Auto) 2.8 0.0-7.0 % Basophils (%) (Auto) 0.4 0.0-2.0 % Neutrophils # (Auto) 2.6 1.6-8.6 10 ^3/uL Lymphocytes # (Auto) 1.3 0.4-5.4 10 ^3/uL Monocytes # (Auto) 0.4 0-1.3 10 ^3/uL Eosinophils # (Auto) 0.1 0-0.8 10 ^3/uL Basophils # (Auto) 0 0-0.2 10 ^3/uL Nucleated Red Blood Cells 0.0 % Sodium Level 144 136-145 mmol/L Potassium Level 4.1 3.5-5.1 mmol/L Chloride Level 110 H 98-107 mmol/L Carbon Dioxide Level 26 20-31 mmol/L Anion Gap 8 5-15 Blood Urea Nitrogen 13 9-23 mg/dL Creatinine 0.69 0.550-1.02 mg/dL Glomerular Filtration Rate Calc 92 >90 mL/min BUN/Creatinine Ratio 18.8 10.0-20.0 Serum Glucose 102 74-106 mg/dL Calcium Level 9.7 8.7-10.4 mg/dL Total Bilirubin 0.8 0.2-1.0 mg/dL Aspartate Amino Transferase (AST) 24 <34 U/L Alanine Aminotransferase (ALT) 11 7-40 U/L Alkaline Phosphatase 70 46-116 U/L Creatine Kinase 104 34-145 U/L B-Type Natriuretic Peptide 91.68 0-100 pg/mL Total Protein 6.3 5.7-8.2 g/dL Albumin 4.2 3.2-4.8 g/dL Triglycerides Level 99 < 150 mg/dL Cholesterol Level 139 < 200 mg/dL LDL Cholesterol 76 < 100 mg/dL HDL Cholesterol 52 40-59 mg/dL Troponin I High Sensitivity 1501 *H </=34 ng/L Urine Color Colorless Yellow Urine Clarity Clear Clear Urine pH 7.0 5.0-9.0 Urine Specific [place] 1.007 1.001-1.035 Urine Protein Negative Negative Urine Ketones Negative Negative Urine Blood Negative Negative /uL Urine Nitrite Negative Negative Urine Bilirubin Negative Negative Urine Urobilinogen Normal Negative mg/dL Urine Leukocyte Esterase 2+ Negative /uL Urine RBC 1 0 - 4 /hpf Urine Microscopic WBC 2 0-5 /HPF Urine Squamous Epithelial Cells Few <5 /hpf Urine Bacteria Few H None Seen /hpf Urine Glucose Normal Normal mg/dL Magnesium Level 2.2 1.6-2.6 mg/dL Assessment Chest pain Elevated Troponin Hyperlipidemia Plan/Recommendation Continue current supportive medical care. Cardiology following. S/p LHC. Neurology consult. CT Head without contrast. ASA and Statin therapy. Optimization of BP. Regular diet. Pain management prn. Continue current supportive medical care. Plan discussed with: Patient, Other (RN) KEKE ALMARAZ DO Dec 18, 2024 13:45
--- NOTE | 2024-12-18 13:46 | DVHPN2 ---
Progress Note - Dictate Date Seen: Dec 18, 2024 Has the PT tested + for MRSA If YES, has PT been informed?: No Medical Necessity Reason Pt with a Central, PICC or Fol: No Subjective Patient was seen and evaluated in follow up. No acute events overnight. Patient denies any complaints. A&O x2-3. CT Head yesterday reported no intracranial hemorrhage or mass effect; moderate to advanced chronic microvascular ischemic changes. vital signs Vital Sign Date Time Temp Pulse Resp B/P (MAP) Pulse Ox O2 Delivery O2 Flow Rate FiO2 12/18/24 09:52 81 146/68 12/18/24 09:00 97.3 20 98 97.3 12/18/24 08:10 Room Air* 0 21 Total Intake and Output 12/17/24 12/17/24 12/18/24 15:00 23:00 07:00 Intake Total 240 ml 400 ml Balance 240 ml 400 ml medications Current Medications Medications Dose Ordered Sig/Amos Route Start Time Stop Time Status Last Admin Dose Admin Aspirin 81 mg DAILY PO 12/17/24 10:00 12/18/24 09:53 Atorvastatin Calcium 40 mg HS PO 12/17/24 22:00 12/17/24 21:19 Morphine Sulfate 2 mg Q30MP PRN IV 12/16/24 22:45 Acetaminophen 325 mg Q4HP PRN PO 12/16/24 22:45 12/18/24 09:51 Docusate Sodium 100 mg DAILY PO 12/17/24 10:00 12/18/24 09:51 Ondansetron HCl 4 mg Q4HP PRN IV 12/16/24 22:45 Nitroglycerin 0.4 mg Q5MINP PRN SL 12/16/24 22:45 12/17/24 09:28 Bisacodyl 10 mg DAILYP PRN [place] 12/17/24 16:00 12/17/24 16:36 Diltiazem HCl 120 mg DAILY PO 12/18/24 10:00 12/18/24 09:52 objective Vitals and nursing notes reviewed. General Appearance: Cooperative, No acute distress HEENT: Atraumatic, PERRLA, EOMI, Mucous membr. moist/pink Respiratory: Clear to auscultation, Normal air movement Cardiovascular: Regular rate, Normal S1, Normal S2, No murmurs Abdominal: Normal bowel sounds, Soft, No tenderness, No hepatospenomegaly, No masses Extremities: No clubbing, No cyanosis, No edema, Normal pulses, No tenderness/swelling Skin: No rashes, No breakdown, No significant lesion Neuro: A&O x2-3. Coherent, Other (Neuro nonfocal) Psych/Mental Status: Mental status NL, Mood NL laboratory and microbiology Laboratory Tests 12/17/24 06:20 Test 12/17/24 06:20 Range/Units Serum Glucose 102 74-106 mg/dL Problem List Chest pain Elevated Troponin Hyperlipidemia Essential hypertension, likely new diagnosis patient unaware Assessment/Plan Continue current supportive medical care. Cardiology consulted. S/p C 12/16. Neurology consult. ASA and Statin therapy. Cardizem ER 120 mg PO daily. Optimization of BP. Regular diet. Pain management prn. Continue current supportive medical care. Plan discussed with: Patient, Other (RN) KEKE ALMARAZ DO Dec 18, 2024 13:46
--- NOTE | 2024-12-18 16:34 | DVH ---
EXAM: MRI BRAIN HEAD WO CONTRAST CLINICAL HISTORY: lightheadness COMPARISON: None TECHNIQUE: Multiplanar, multisequence magnetic resonance imaging of the brain was performed without intravenous contrast. FINDINGS: Foci of diffusion restriction involving the bilateral cerebellum, right mesial temporal lobe, right o ccipitotemporal region, left thalamus , left mesial occipital lobe and left high convexity frontal lo be. Mild diffuse brain atrophy. [id number] chronic small-vessel ischemic changes. No hemorrhages, masses, mass effect, midline shift or herniation. No intra-axial or extra-axial fluid collections. N o evidence of hydrocephalus. The basal cisterns are patent. The vascular flow voids are maintained. The pituitary gland, sella and parasellar regions unremarkable. The cerebellar tonsils are normal pos ition. The cerebellum is unremarkable. The orbits and globes unremarkable. Minimal mucoperiosteal thickening of the ethmoid air cells. The remainder of the paranasal sinuses and mastoids are clear. There are No worrisome calvarial lesions. 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 Eladio jefferson for Possible embolic process.
--- NOTE | 2024-12-18 20:02 | DVHINCON2 ---
Date of service: Dec 18, 2024 Referring Physician Reason for Consultation Light head History of Present Illness Ms. Breaux is a 73 years old female with a history of dyslipidemia, she came to the [facility] on 12/10 11/25 with a chief complaint of chest pain, but she also developed new problems in the hospital Up she came to the [facility], the patient was found to have elevated troponin one/heart attack and she went through cardiac catheterization in the evening on 12/16/2024, the patient claimed she did not have memory dysfunction, weakness numbness prior to the cardiac catheterization, but in the morning on 02/16/25, when the daughter came over, the patient had difficulty getting words out, he also did not remember where her daughter lived. Today her problems better, per my observation, she has no problem to understand spoken language, but when she answers, she has difficulty getting words out, mostly names He snores, but very mild, like cat purring Urinalysis, 12/16/2024: WBC: 2, urine leukocyte esterase: 2+ CBC, 12/17/2024: Unremarkable CMP, 12/17/2024: Unremarkable Troponin one high sensitivity, 12/16/2024: 1501 TG/HDL/LDL/HDL, 12/17/2024: 99/139/76/52 Echocardiogram, 12/18/2024: MILD LVH AND MILD LV DIASTOLIC DYSFUNCTION LV EF IS 65% NORMAL VALVES NO EFFUSION NORMAL RV FUNCTION AND SIZE MRI head, 12/18/2024: Foci of acute infarct involving the bilateral cerebellum, right mesial temporal lobe, right occipitotemporal region, left thalamus, left mesial occipital lobe and left high convexity frontal lobe. Correlate for Possible embolic process Past Medical History Dyslipidemia, coronary artery disease, heart attack Past Surgical History Cholecystectomy, hysterectomy Family History: Patient reports no known family medical history. Family History She is adopted Social History She has no history of tobacco smoking, drug or alcohol abuse Allergies: Coded Allergies: Codeine (Verified Allergy, Unknown, 12/25/21) Penicillins (Verified Allergy, Unknown, 12/25/21) Tetanus Toxoids (Verified Allergy, Unknown, 12/25/21) Home Meds Reported Medications Atorvastatin Calcium (ATORVASTATIN CALCIUM) 10 Mg Tab, 1 TAB PO DAILY, #30 TAB 5 Refills 12/17/24 Current Medications Current Medications Medications (Trade) Dose Ordered Sig/Amos Route PRN Reason Start Time Stop Time Status Last Admin Atorvastatin Calcium (Lipitor) 40 mg HS PO 12/17/24 22:00 12/17/24 21:19 Diltiazem HCl (Cardizem ER Capsule) 120 mg DAILY PO 12/18/24 10:00 12/18/24 09:52 Review of Systems As above, the other systems are negative Vital Signs Vital Signs Date Time Temp Pulse Resp B/P (MAP) Pulse Ox O2 Delivery O2 Flow Rate FiO2 12/18/24 16:35 98.4 84 20 142/74 (96) 96 98.4 12/18/24 08:10 Room Air* 0 21 Physical Exam GENERAL EXAM: General: the patient is well developed and nourished. No acute distress. HEENT: Normocephalic, neck is supple, no carotid bruits. No mass. RESPIRATORY: Normal respiratory effort with symmetrical lung expansion. Lungs clear to auscultation. CARDIOVASCULAR: Regular rate and rhythm with no murmurs. S1, S2. ABDOMEN: Soft, nontender, normal bowel sound NEUROLOGICAL: MENTAL STATUS: Awake and alert. Oriented to person, place, time and general circumstances. Poor historian secondary to language dysfunction SPEECH, LANGUAGE, HIGHER CORTICAL FUNCTION: She has mild dysnomia/aphasia, comprehension is normal, speech is clear CRANIAL NERVES: #2: Intact visual cisneros to confrontation. The optic discs were sharp. #3,4,6: Pupils are equal, round and reactive. EOMs full and conjugate. #5: Facial sensation intact in all three divisions bilaterally. Mandibular strength intact. #7: Facial muscles symmetrical and strength intact. #8: Hearing grossly normal to voice. #9,10: Uvula and soft palate rise in the midline. Swallow and voice are normal. #11: Trapezius and sternomastoid strength intact bilaterally. #12: Tongue midline. No fasciculations or atrophy. SENSATION: Sensation to touch and pinprick is normal. MOTOR: Normal tone in the upper and lower extremity. Normal muscle bulk. No fasciculations. No abnormal movements or posturing. Muscle strength of the major groups in the upper extremities is 5/5. Muscle strength of the major groups in the lower extremities is 5/5. REFLEXES: Deep tendon reflexes normal and symmetrical. No pathological reflexes. CEREBELLAR/COORDINATION: Finger to nose is normal bilaterally. GAIT/STATION: deferred. Labs/Diagnostic Data Labs Test 12/17/24 06:20 12/16/24 18:00 12/16/24 16:31 12/16/24 15:10 Range/Units White Blood Count 4.4 4.4-10.8 10^3/uL Red Blood Count 4.47 4.0-5.20 10^6/uL Hemoglobin 14.3 12.2-16.2 g/dL Hematocrit 41.4 36.0-46.0 % Mean Corpuscular Volume 92.6 80.0-100.0 fL Mean Corpuscular Hemoglobin 31.9 28.0-32.0 pg Mean Corpuscular Hemoglobin Concent 34.5 32.0-36.0 g/dL Red Cell Distribution Width 12.3 11.8-14.3 % Platelet Count 219 140-450 10^3/uL Mean Platelet Volume 8.5 6.9-10.8 fL Neutrophils (%) (Auto) 59.0 37.0-80.0 % Lymphocytes (%) (Auto) 29.0 10.0-50.0 % Monocytes (%) (Auto) 8.8 0.0-12.0 % Eosinophils (%) (Auto) 2.8 0.0-7.0 % Basophils (%) (Auto) 0.4 0.0-2.0 % Neutrophils # (Auto) 2.6 1.6-8.6 10 ^3/uL Lymphocytes # (Auto) 1.3 0.4-5.4 10 ^3/uL Monocytes # (Auto) 0.4 0-1.3 10 ^3/uL Eosinophils # (Auto) 0.1 0-0.8 10 ^3/uL Basophils # (Auto) 0 0-0.2 10 ^3/uL Nucleated Red Blood Cells 0.0 % Sodium Level 144 136-145 mmol/L Potassium Level 4.1 3.5-5.1 mmol/L Chloride Level 110 H 98-107 mmol/L Carbon Dioxide Level 26 20-31 mmol/L Anion Gap 8 5-15 Blood Urea Nitrogen 13 9-23 mg/dL Creatinine 0.69 0.550-1.02 mg/dL Glomerular Filtration Rate Calc 92 >90 mL/min BUN/Creatinine Ratio 18.8 10.0-20.0 Serum Glucose 102 74-106 mg/dL Calcium Level 9.7 8.7-10.4 mg/dL Total Bilirubin 0.8 0.2-1.0 mg/dL Aspartate Amino Transferase (AST) 24 <34 U/L Alanine Aminotransferase (ALT) 11 7-40 U/L Alkaline Phosphatase 70 46-116 U/L Creatine Kinase 104 34-145 U/L B-Type Natriuretic Peptide 91.68 0-100 pg/mL Total Protein 6.3 5.7-8.2 g/dL Albumin 4.2 3.2-4.8 g/dL Triglycerides Level 99 < 150 mg/dL Cholesterol Level 139 < 200 mg/dL LDL Cholesterol 76 < 100 mg/dL HDL Cholesterol 52 40-59 mg/dL Troponin I High Sensitivity 1501 *H </=34 ng/L Urine Color Colorless Yellow Urine Clarity Clear Clear Urine pH 7.0 5.0-9.0 Urine Specific [place] 1.007 1.001-1.035 Urine Protein Negative Negative Urine Ketones Negative Negative Urine Blood Negative Negative /uL Urine Nitrite Negative Negative Urine Bilirubin Negative Negative Urine Urobilinogen Normal Negative mg/dL Urine Leukocyte Esterase 2+ Negative /uL Urine RBC 1 0 - 4 /hpf Urine Microscopic WBC 2 0-5 /HPF Urine Squamous Epithelial Cells Few <5 /hpf Urine Bacteria Few H None Seen /hpf Urine Glucose Normal Normal mg/dL Magnesium Level 2.2 1.6-2.6 mg/dL Assessment Stroke, likely secondary to heart catheterization Dysnomia/aphasia, secondary to acute stroke Plan/Recommendation Monitoring Supportive treatment Telemetry EDI to rule out cardioembolic source Carotid Doppler Aspirin 81 mg daily Lipitor 40 mg daily Speech pathology evaluation More recommendation per clinical course Prognosis: Poor This medical document was created using an electronic medical record system with [employer] dictation system. Although this document has been carefully reviewed, there may still be some phonetic and typographical errors. These areas are purely typographical due to imperfections of the software programs, and do not reflect any compromise in the patient's medical care. Plan discussed with: Patient, Daughter, Other MATT GARCIA MD Dec 18, 2024 20:02
[2024-12-19] VITALS (9 sets, daily range): BP systolic 109–133; BP diastolic 65–75; PULSE 74–81; RESP 17–18; TEMP 97.6–98.1; O2SAT 94–97
--- NOTE | 2024-12-19 16:57 | DVHPN2 ---
Progress Note - Dictate Date Seen: Dec 19, 2024 Has the PT tested + for MRSA If YES, has PT been informed?: No Medical Necessity Reason Pt with a Central, PICC or Fol: No Subjective Patient was seen and evaluated in follow up. No acute events overnight. No new complaints. Patient has difficulty getting words out, mostly names. Awaiting speech evaluation. Brain MRI performed yesterday reported foci of acute infarct involving the bilateral cerebellum, right mesial temporal lobe, right occipitotemporal region, left thalamus, left mesial occipital lobe and left high convexity frontal lobe. vital signs Vital Sign Date Time Temp Pulse Resp B/P (MAP) Pulse Ox O2 Delivery O2 Flow Rate FiO2 12/19/24 12:58 98.0 81 18 109/67 (81) 96 98.0 12/19/24 07:50 Room Air* 0 21 Total Intake and Output 12/18/24 12/18/24 12/19/24 15:00 23:00 07:00 Intake Total 1740 ml 400 ml Balance 1740 ml 400 ml medications Current Medications Medications Dose Ordered Sig/Amos Route Start Time Stop Time Status Last Admin Dose Admin Aspirin 81 mg DAILY PO 12/17/24 10:00 12/19/24 09:28 81 MG Atorvastatin Calcium 40 mg HS PO 12/17/24 22:00 12/18/24 22:17 40 MG Morphine Sulfate 2 mg Q30MP PRN IV 12/16/24 22:45 Acetaminophen 325 mg Q4HP PRN PO 12/16/24 22:45 12/18/24 09:51 325 MG Docusate Sodium 100 mg DAILY PO 12/17/24 10:00 12/19/24 09:28 100 MG Ondansetron HCl 4 mg Q4HP PRN IV 12/16/24 22:45 Nitroglycerin 0.4 mg Q5MINP PRN SL 12/16/24 22:45 12/17/24 09:28 0.4 MG Bisacodyl 10 mg DAILYP PRN NV 12/17/24 16:00 12/17/24 16:36 10 MG Diltiazem HCl 120 mg DAILY PO 12/18/24 10:00 12/19/24 09:29 120 MG objective Vitals and nursing notes reviewed. General Appearance: Cooperative, No acute distress HEENT: Atraumatic, PERRLA, EOMI, Mucous membr. moist/pink Respiratory: Clear to auscultation, Normal air movement Cardiovascular: Regular rate, Normal S1, Normal S2, No murmurs Abdominal: Normal bowel sounds, Soft, No tenderness, No hepatospenomegaly, No masses Extremities: No clubbing, No cyanosis, No edema, Normal pulses, No tenderness/swelling Skin: No rashes, No breakdown, No significant lesion Neuro: A&O x2-3. Coherent, Other (Neuro nonfocal) Psych/Mental Status: Mental status NL, Mood NL laboratory and microbiology Laboratory Tests 12/17/24 06:20 Test 12/17/24 06:20 Range/Units Serum Glucose 102 74-106 mg/dL Problem List Chest pain Elevated Troponin Hyperlipidemia Essential hypertension, likely new diagnosis patient unaware Stroke, likely secondary to heart catheterization Dysnomia/aphasia, secondary to acute stroke Assessment/Plan Continue current supportive medical care. Cardiology consulted. S/p [facility] 12/16. Neurology following. Speech evaluation and PT evals. ASA and Statin therapy. Cardizem ER 120 mg PO daily. Optimization of BP. Regular diet. Pain management prn. Continue current supportive medical care. Plan discussed with: Patient, Other (RN) KEKE ALMARAZ DO Dec 19, 2024 16:57
[2024-12-20] VITALS (8 sets, daily range): BP systolic 125–137; BP diastolic 65–78; PULSE 75–83; RESP 16–18; TEMP 97.5–98; O2SAT 96–98
[2024-12-20 05:39] LABS: Urine Protein, UAD Negative (Negative)
[2024-12-20 06:02] LABS: Hematocrit 42.2 % (36.0-46.0); Hemoglobin 14.6 g/dL (12.2-16.2); Mean Corpuscular Hemoglobin 32.1 pg (28.0-32.0); Mean Corpuscular Volume 93.0 fL (80.0-100.0); Nucleated Red Blood Cells % 0.2 %
[2024-12-20 06:21] LABS: INR 1.03 (0.9-1.15); Partial Thromboplastin Time 26.8 SEC (24.5-34.5); Prothrombin Time 10.9 sec (9.3-11.8)
[2024-12-20 06:24] LABS: Alanine Aminotransferase 29 U/L (7-40); Albumin 4.1 g/dL (3.2-4.8); Alkaline Phosphatase 77 U/L (46-116); Anion Gap 8 (5-15); BUN/Creatinine Ratio 20.0 (10.0-20.0); Blood Urea Nitrogen 16 mg/dL (9-23); Calcium 9.8 mg/dL (8.7-10.4); Carbon Dioxide 26 mmol/L (20-31); Glucose 94 mg/dL (74-106); Potassium 4.2 mmol/L (3.5-5.1); Sodium 143 mmol/L (136-145); Total Protein 6.3 g/dL (5.7-8.2)
[2024-12-20 06:25] LABS: Bilirubin, Total 0.8 mg/dL (0.2-1.0)
[2024-12-20 06:30] LABS: Chloride 109 mmol/L (98-107)
--- NOTE | 2024-12-20 06:35 | DVH ---
EXAM: XR Chest, 1 View CLINICAL INDICATION: Pain TECHNIQUE: Frontal view of the chest. COMPARISON: No relevant prior studies available. FINDINGS: LUNGS AND PLEURAL SPACES: Unremarkable. No consolidation. No pneumothorax. HEART: Unremarkable. No cardiomegaly. MEDIASTINUM: Unremarkable. Normal mediastinal contour. BONES/JOINTS: Unremarkable. No acute fracture. IMPRESSION: No acute cardiopulmonary process.
--- NOTE | 2024-12-20 07:41 | ECG ---
[facility] Test Date: 2024-12-20 Test Time: 05:28:54 Pat Name: SUHA THOMPSON Department: Respiratoy Room: 0276T A Gender: F Display Designer: ARLEY : 1950 Requested By: KEKE ALMARAZ Order Number: [id number] Reading MD: Mian Silva Measurements Intervals [place] Rate: 81 P: 68 AK: 157 QRS: 32 QRSD: 103 T: 38 QT: 389 QTc: 452 Interpretive Statements Sinus rhythm Inferior infarct, old Electronically Signed On 12-24-2024 9:32:05 PDT by Mian Silva Please click the below link to view image of tracing.
--- NOTE | 2024-12-20 21:11 | DVHPN2 ---
Progress Note - Dictate Date Seen: Dec 20, 2024 Has the PT tested + for MRSA If YES, has PT been informed?: No Medical Necessity Reason Pt with a Central, PICC or Fol: No Subjective Patient was seen and evaluated in follow up. No acute events overnight. No new complaints. Patient denies any pain or discomfort. She was evaluated by speech therapy and noted with mild difficulty with word finding activities. F/u Chest x-ray this morning reported no acute cardiopulmonary process. vital signs Vital Sign Date Time Temp Pulse Resp B/P (MAP) Pulse Ox O2 Delivery O2 Flow Rate FiO2 12/20/24 17:00 97.8 80 18 128/66 (86) 96 97.8 12/20/24 08:00 Room Air* 0 21 Total Intake and Output 12/19/24 12/19/24 12/20/24 15:00 23:00 07:00 Intake Total 1900 ml 250 ml Balance 1900 ml 250 ml medications Current Medications Medications Dose Ordered Sig/Amos Route Start Time Stop Time Status Last Admin Dose Admin Aspirin 81 mg DAILY PO 12/17/24 10:00 12/20/24 10:12 81 MG Atorvastatin Calcium 40 mg HS PO 12/17/24 22:00 12/19/24 21:20 40 MG Morphine Sulfate 2 mg Q30MP PRN IV 12/16/24 22:45 Acetaminophen 325 mg Q4HP PRN PO 12/16/24 22:45 12/18/24 09:51 325 MG Docusate Sodium 100 mg DAILY PO 12/17/24 10:00 12/20/24 10:12 100 MG Ondansetron HCl 4 mg Q4HP PRN IV 12/16/24 22:45 Nitroglycerin 0.4 mg Q5MINP PRN SL 12/16/24 22:45 12/17/24 09:28 0.4 MG Bisacodyl 10 mg DAILYP PRN [place] 12/17/24 16:00 12/17/24 16:36 10 MG Diltiazem HCl 120 mg DAILY PO 12/18/24 10:00 12/20/24 10:12 120 MG objective Vitals and nursing notes reviewed. General Appearance: Cooperative, No acute distress HEENT: Atraumatic, PERRLA, EOMI, Mucous membr. moist/pink Respiratory: Clear to auscultation, Normal air movement Cardiovascular: Regular rate, Normal S1, Normal S2, No murmurs Abdominal: Normal bowel sounds, Soft, No tenderness, No hepatospenomegaly, No masses Extremities: No clubbing, No cyanosis, No edema, Normal pulses, No tenderness/swelling Skin: No rashes, No breakdown, No significant lesion Neuro: A&O x2-3. Coherent, Other (Neuro nonfocal) Psych/Mental Status: Mental status NL, Mood NL laboratory and microbiology Laboratory Tests 12/20/24 05:06 Test 12/20/24 05:06 Range/Units Serum Glucose 94 74-106 mg/dL Problem List Chest pain Elevated Troponin Hyperlipidemia Essential hypertension, likely new diagnosis patient unaware Stroke, likely secondary to heart catheterization Dysnomia/aphasia, secondary to acute stroke Assessment/Plan Continue current supportive medical care. Cardiology reconsulted for EDI. S/p C 12/16. Neurology following. AM labs. ASA and Statin therapy. Cardizem ER 120 mg PO daily. Optimization of BP. Regular diet. Pain management prn. Additional plan as per the hospital course. Plan discussed with: Patient, Other (RN) KEKE ALMARAZ DO Dec 20, 2024 21:11
--- NOTE | 2024-12-20 22:06 | DVHPN2 ---
Progress Note - Dictate Date Seen: Dec 20, 2024 Has the PT tested + for MRSA If YES, has PT been informed?: No Medical Necessity Reason Pt with a Central, PICC or Fol: No Subjective Ms. Breaux is a 73 years old female with a history of dyslipidemia, she came to the [facility] on 12/10 11/25 with a chief complaint of chest pain, but she also developed new problems in the hospital I have seen examined the patient, talked to her nurse, she is doing better today, alert oriented x3, dysautonomia is obvious better Urinalysis, 12/16/2024: WBC: 2, urine leukocyte esterase: 2+ CBC, 12/17/2024: Unremarkable CMP, 12/17/2024: Unremarkable Troponin one high sensitivity, 12/16/2024: 1501 TG/HDL/LDL/HDL, 12/17/2024: 99/139/76/52 Echocardiogram, 12/18/2024: MILD LVH AND MILD LV DIASTOLIC DYSFUNCTION LV EF IS 65% NORMAL VALVES NO EFFUSION NORMAL RV FUNCTION AND SIZE MRI head, 12/18/2024: Foci of acute infarct involving the bilateral cerebellum, right mesial temporal lobe, right occipitotemporal region, left thalamus, left mesial occipital lobe and left high convexity frontal lobe. Correlate for Possible embolic process vital signs Vital Sign Date Time Temp Pulse Resp B/P (MAP) Pulse Ox O2 Delivery O2 Flow Rate FiO2 12/20/24 21:00 97.5 77 18 125/65 (85) 96 97.5 12/20/24 08:00 Room Air* 0 21 Total Intake and Output 12/19/24 12/19/24 12/20/24 15:00 23:00 07:00 Intake Total 1900 ml 250 ml Balance 1900 ml 250 ml medications Current Medications Medications Dose Ordered Sig/Amos Route Start Time Stop Time Status Last Admin Dose Admin Aspirin 81 mg DAILY PO 12/17/24 10:00 12/20/24 10:12 81 MG Atorvastatin Calcium 40 mg HS PO 12/17/24 22:00 12/20/24 21:31 40 MG Morphine Sulfate 2 mg Q30MP PRN IV 12/16/24 22:45 Acetaminophen 325 mg Q4HP PRN PO 12/16/24 22:45 12/18/24 09:51 325 MG Docusate Sodium 100 mg DAILY PO 12/17/24 10:00 12/20/24 10:12 100 MG Ondansetron HCl 4 mg Q4HP PRN IV 12/16/24 22:45 Nitroglycerin 0.4 mg Q5MINP PRN SL 12/16/24 22:45 12/17/24 09:28 0.4 MG Bisacodyl 10 mg DAILYP PRN AR 12/17/24 16:00 12/17/24 16:36 10 MG Diltiazem HCl 120 mg DAILY PO 12/18/24 10:00 12/20/24 10:12 120 MG objective General: the patient is well developed and nourished. No acute distress. MENTAL STATUS: Subjective SPEECH, LANGUAGE, HIGHER CORTICAL FUNCTION: She has mild dysnomia/aphasia, comprehension is normal, speech is clear CRANIAL NERVES: Pupils are equal, round and reactive. EOMs full and conjugate. Facial sensation intact in all three divisions bilaterally. Mandibular strength intact. Facial muscles symmetrical and strength intact. SENSATION: Sensation to touch and pinprick is normal. MOTOR: Normal tone in the upper and lower extremity. Normal muscle bulk. No fasciculations. No abnormal movements or posturing. Muscle strength of the major groups in the extremities is 5/5. REFLEXES: Deep tendon reflexes normal and symmetrical. No pathological reflexes. CEREBELLAR/COORDINATION: Finger to nose is normal bilaterally. GAIT/STATION: deferred. laboratory and microbiology Laboratory Tests 12/20/24 05:06 Test 12/20/24 05:06 Range/Units Serum Glucose 94 74-106 mg/dL Problem List Stroke, likely secondary to heart catheterization Dysnomia/aphasia, secondary to acute stroke Assessment/Plan Monitoring Supportive treatment Telemetry EDI to rule out cardioembolic source Carotid Doppler Aspirin 81 mg daily Lipitor 40 mg daily Speech pathology More recommendation per clinical course This medical document was created using an electronic medical record system with [employer] dictation system. Although this document has been carefully reviewed, there may still be some phonetic and typographical errors. These areas are purely typographical due to imperfections of the software programs, and do not reflect any compromise in the patient's medical c Prognosis poor Plan discussed with: Patient, Other MATT GARCIA MD Dec 20, 2024 22:06
--- NOTE | 2024-12-20 23:05 | DVHINCON2 ---
Date of service: Dec 20, 2024 Referring Physician Sterling Almaraz Reason for Consultation EDI History of Present Illness This is a 73-year-old female with a PMH of Hyperlipidemia who presented to the ED on 12/16/24 with complaints of midsternal chest pain radiating to her left chest wall and up to the jaw. Patient stated the pain felt like pressure. Pain developed while she was walking her dog when they were confronted by a pit bull. The patient was found to have abnormal ST segment changes and elevated troponins 67, 464, 1500. Code STEMI was called. Philosophy Professor, Dr. Silva, consulted and patient underwent left heart catheterization; bilateral cine coronary angiography; left ventriculography. Per report: Normal left ventricular end- diastolic pressure at rest; normal left ventricular ejection fraction; no significant coronary artery disease. Echocardiogram showed mild LVH and mild LV diastolic dysfunction; LV EF is 65%; normal valves; no effusion; normal RV function and size. MRI brain revealed foci of acute infarct involving the bilateral cerebellum, right mesial temporal lobe, right occipitotemporal region, left thalamus, left mesial occipital lobe and left high convexity frontal lobe. I am asked to consult on this patient for EDI. Family History: Patient reports no known family medical history. Allergies: Coded Allergies: Codeine (Verified Allergy, Unknown, 12/25/21) Penicillins (Verified Allergy, Unknown, 12/25/21) Tetanus Toxoids (Verified Allergy, Unknown, 12/25/21) Home Meds Reported Medications Atorvastatin Calcium (ATORVASTATIN CALCIUM) 10 Mg Tab, 1 TAB PO DAILY, #30 TAB 5 Refills 12/17/24 Review of Systems Constitutional: denies: chills, diaphoresis, fatigue, fever, malaise, sweats, weakness, others EENTM: denies: blurred vision, double vision, ear bleeding, ear discharge, ear drainage, ear pain, ear ringing, eye pain, eye redness, hearing loss, mouth pain, mouth swelling, nasal discharge, nose bleeding, nose congestion, nose pain, photophobia, tearing, throat pain, throat swelling, voice changes, others Respiratory: denies: cough, hemoptysis, orthopnea, SOB at rest, shortness of breath, SOB with excertion, stridor, wheezing, others Cardiovascular: reports: chest pain; denies: dizzy spells, diaphoresis, Dyspnea on exertion, edema, irregular heart beat, left arm pain, lightheadedness, palpitations, PND, syncope, others Gastrointestinal: denies: abdomen distended, abdominal pain, blood streaked bowels, constipated, diarrhea, dysphagia, difficulty swallowing, hematemesis, melena, nausea, poor appetite, poor fluid intake, rectal bleeding, rectal pain, vomiting, others Genitourinary: denies: abnormal vagina bleeding, burning, dyspareunia, dysuria, flank pain, frequency, hematuria, incontinence, pain, , vagina discharge, urgency, others Neurological: denies: dizziness, fainting, headache, left sided numbness, left sided weakness, numbness, paresthesia, pre-existing deficit, right sided numbness, right sided weakness, seizure, speech problems, tingling, tremors, weakness, others Musculoskeletal: denies: back pain, gout, joint pain, joint swelling, muscle pain, muscle stiffness, neck pain, others Integumetry: denies: bruises, change in color, change in hair/nails, dryness, laceration, lesions, lumps, rash, wounds, others Allergic/Immunocompromised: denies: Difficulty Healing, Frequent Infections, Hives, Itching, others Hematologic/Lymphatic: denies: anemia, blood clots, easy bleeding, easy bruising, swollen glands, others Endocrine: denies: excessive hunger, excessive sweating, excessive thirst, excessive urination, flushing, intolerance to cold, intolerance to heat, unex plained weight gain, unexplained weight loss, others Psychiatric: denies: anxiety, bipolar disorder, depression, hopeless, panic disorder, schizophrenia, sleepless, suicidal, others Vital Signs Vital Signs Date Time Temp Pulse Resp B/P (MAP) Pulse Ox O2 Delivery O2 Flow Rate FiO2 12/20/24 21:00 97.5 77 18 125/65 (85) 96 97.5 12/20/24 08:00 Room Air* 0 21 Physical Exam GENERAL: Alert and oriented x 3. No acute distress. EYES: PERRL, EOMI. Anicteric. HENT: Moist mucous membranes. LUNGS: Clear to auscultation bilaterally. CARDIOVASCULAR: Regular rate and rhythm. ABDOMEN: Soft, non-tender and non-distended. EXTREMITIES: No edema. NEUROLOGIC: No focal neurological deficits. SKIN: Warm, dry. Labs/Diagnostic Data Labs Test 12/20/24 05:06 12/20/24 04:50 12/19/24 23:30 12/17/24 06:20 Range/Units White Blood Count 5.1 4.4-10.8 10^3/uL Red Blood Count 4.54 4.0-5.20 10^6/uL Hemoglobin 14.6 12.2-16.2 g/dL Hematocrit 42.2 36.0-46.0 % Mean Corpuscular Volume 93.0 80.0-100.0 fL Mean Corpuscular Hemoglobin 32.1 H 28.0-32.0 pg Mean Corpuscular Hemoglobin Concent 34.5 32.0-36.0 g/dL Red Cell Distribution Width 12.2 11.8-14.3 % Platelet Count 260 140-450 10^3/uL Mean Platelet Volume 8.7 6.9-10.8 fL Neutrophils (%) (Auto) 50.8 37.0-80.0 % Lymphocytes (%) (Auto) 34.0 10.0-50.0 % Monocytes (%) (Auto) 8.1 0.0-12.0 % Eosinophils (%) (Auto) 6.3 0.0-7.0 % Basophils (%) (Auto) 0.8 0.0-2.0 % Neutrophils # (Auto) 2.6 1.6-8.6 10 ^3/uL Lymphocytes # (Auto) 1.7 0.4-5.4 10 ^3/uL Monocytes # (Auto) 0.4 0-1.3 10 ^3/uL Eosinophils # (Auto) 0.3 0-0.8 10 ^3/uL Basophils # (Auto) 0 0-0.2 10 ^3/uL Nucleated Red Blood Cells 0.2 % Prothrombin Time 10.9 9.3-11.8 sec Prothrombin Time INR 1.03 0.9-1.15 Activated Partial Thromboplast Time 26.8 24.5-34.5 SEC Sodium Level 143 136-145 mmol/L Potassium Level 4.2 3.5-5.1 mmol/L Chloride Level 109 H 98-107 mmol/L Carbon Dioxide Level 26 20-31 mmol/L Anion Gap 8 5-15 Blood Urea Nitrogen 16 9-23 mg/dL Creatinine 0.80 0.550-1.02 mg/dL Glomerular Filtration Rate Calc 78 >90 mL/min BUN/Creatinine Ratio 20.0 10.0-20.0 Serum Glucose 94 74-106 mg/dL Calcium Level 9.8 8.7-10.4 mg/dL Total Bilirubin 0.8 0.2-1.0 mg/dL Aspartate Amino Transferase (AST) 29 <34 U/L Alanine Aminotransferase (ALT) 29 7-40 U/L Alkaline Phosphatase 77 46-116 U/L Total Protein 6.3 5.7-8.2 g/dL Albumin 4.1 3.2-4.8 g/dL Urine Color Light-yellow Yellow Urine Clarity Clear Clear Urine pH 5.5 5.0-9.0 Urine Specific Emmalena 1.011 1.001-1.035 Urine Protein Negative Negative Urine Ketones Negative Negative Urine Blood Negative Negative /uL Urine Nitrite Negative Negative Urine Bilirubin Negative Negative Urine Urobilinogen Normal Negative mg/dL Urine Leukocyte Esterase 2+ Negative /uL Urine RBC 2 0 - 4 /hpf Urine Microscopic WBC 6 H 0-5 /HPF Urine Squamous Epithelial Cells Few <5 /hpf Urine Bacteria None seen None Seen /hpf Urine Glucose Normal Normal mg/dL Beta HCG, Quantitative 4.8 H 1.5-4.2 mIU/mL Creatine Kinase 104 34-145 U/L B-Type Natriuretic Peptide 91.68 0-100 pg/mL Triglycerides Level 99 < 150 mg/dL Cholesterol Level 139 < 200 mg/dL LDL Cholesterol 76 < 100 mg/dL HDL Cholesterol 52 40-59 mg/dL Test 12/16/24 18:00 12/16/24 15:10 Range/Units Troponin I High Sensitivity 1501 *H </=34 ng/L Magnesium Level 2.2 1.6-2.6 mg/dL Assessment Chest pain. Elevated troponin. Hyperlipidemia. Essential hypertension. Stroke, likely secondary to heart catheterization. Dysnomia/aphasia, secondary to acute stroke. Plan/Recommendation I agree with your ongoing assessment and care of plan. S/p [facility] 12/16. EDI. Aspirin, Lipitor. Diltiazem. Morphine for pain. Nitro SL. Additional plan as per the hospital course. A total of 45 minutes was spent reviewing the patient record, examining the patient, making a diagnostic and therapeutic plan, discussing this plan with medical personnel, following up on diagnostic studies and following the patient for clinical stability excluding any and all procedures. At least 50% of this time was spent in direct, [id number] contact. Plan discussed with: Patient UBALDO ALMARAZ MD Dec 20, 2024 21:55
[2024-12-21] VITALS (9 sets, daily range): BP systolic 109–136; BP diastolic 60–80; PULSE 72–90; RESP 18–20; TEMP 97.6–98.1; O2SAT 95–97
--- NOTE | 2024-12-21 01:37 | DVH ---
Carotid Duplex Clinical History: CVA Comparison: None Technique: Duplex Doppler evaluation of the extracranial carotid and vertebral arteries including color Doppler and spectral/pulsed waveform analysis was performed. Findings: RIGHT SIDE: Mild plaque noted at the right carotid bifurcation. The peak systolic velocities are 76 cm/s in the CCA, 116 cm/s in the ICA. The ICA/CCA ratio is 1.5. The external carotid artery is patent with peak systolic velocity of 70 cm/s proximally. There is appropriate antegrade flow in the right vertebral artery. LEFT SIDE: No plaque is noted in the left carotid artery. The peak systolic velocities are 83 cm/s in the CCA, 118 cm/s in the ICA. The ICA/CCA ratio is 1.4. The external carotid artery is patent with peak systolic velocity of 64 cm/s proximally. There is appropriate antegrade flow in the left vertebral artery. IMPRESSION: No evidence of hemodynamically significant stenosis in the carotid arteries. Reference: Radiology 2003; 229:340-346 Normal ICA PSV is <125 cm/sec and no plaque or intimal thickening is visible sonographically addition al criteria include ICA/CCA PSV ratio <2.0 and ICA EDV <40 cm/sec <50% ICA stenosis ICA PSV is <125 cm/sec and plaque or intimal thickening is visible sonographically additional criteria include ICA/CCA PSV ratio <2.0 and ICA EDV <40 cm/sec 50-69% ICA stenosis ICA PSV is 125-230 cm/sec and plaque is visible sonographically additional criter ia include ICA/CCA PSV ratio of 2.0-4.0 and ICA EDV of 40-100 cm/sec 70% ICA stenosis but less than near occlusion ICA PSV is >230 cm/sec and visible plaque and luminal narrowing are seen at walton-scale and color Doppler ultrasound (the higher the Doppler parameters lie above the threshold of 230 cm/sec, the greater the likelihood of severe disease) additional criteria include ICA/CCA PSV ratio >4 and ICA EDV >100 cm/sec
--- NOTE | 2024-12-21 14:40 | DVHPN2 ---
Progress Note - Dictate Date Seen: Dec 21, 2024 Has the PT tested + for MRSA If YES, has PT been informed?: No Medical Necessity Reason Pt with a Central, PICC or Fol: No Subjective Ms. Breaux is a 73 years old female with a history of dyslipidemia, she came to the [facility] on 12/10 11/25 with a chief complaint of chest pain, but she also developed new problems in the hospital I have seen examined the patient, talked to her nurse, daughter in the room with her, she is doing better today, alert oriented x3, dysnomia keeps improving Urinalysis, 12/16/2024: WBC: 2, urine leukocyte esterase: 2+ CBC, 12/17/2024: Unremarkable CMP, 12/17/2024: Unremarkable Troponin one high sensitivity, 12/16/2024: 1501 TG/HDL/LDL/HDL, 12/17/2024: 99/139/76/52 Echocardiogram, 12/18/2024: MILD LVH AND MILD LV DIASTOLIC DYSFUNCTION LV EF IS 65% NORMAL VALVES NO EFFUSION NORMAL RV FUNCTION AND SIZE Carotid Doppler, 12/21/2024: No evidence of hemodynamically significant stenosis in the carotid arteries. MRI head, 12/18/2024: Foci of acute infarct involving the bilateral cerebellum, right mesial temporal lobe, right occipitotemporal region, left thalamus, left mesial occipital lobe and left high convexity frontal lobe. Correlate for Possible embolic process vital signs Vital Sign Date Time Temp Pulse Resp B/P (MAP) Pulse Ox O2 Delivery O2 Flow Rate FiO2 12/21/24 13:00 97.9 82 20 109/80 (90) 97 97.9 12/21/24 07:31 Room Air* 0 21 Total Intake and Output 12/20/24 12/20/24 12/21/24 15:00 23:00 07:00 Intake Total 340 ml 200 ml Balance 340 ml 200 ml medications Current Medications Medications Dose Ordered Sig/Amos Route Start Time Stop Time Status Last Admin Dose Admin Aspirin 81 mg DAILY PO 12/17/24 10:00 12/21/24 11:20 81 MG Atorvastatin Calcium 40 mg HS PO 12/17/24 22:00 12/20/24 21:31 40 MG Morphine Sulfate 2 mg Q30MP PRN IV 12/16/24 22:45 Acetaminophen 325 mg Q4HP PRN PO 12/16/24 22:45 12/18/24 09:51 325 MG Docusate Sodium 100 mg DAILY PO 12/17/24 10:00 12/21/24 11:20 100 MG Ondansetron HCl 4 mg Q4HP PRN IV 12/16/24 22:45 Nitroglycerin 0.4 mg Q5MINP PRN SL 12/16/24 22:45 12/17/24 09:28 0.4 MG Bisacodyl 10 mg DAILYP PRN [place] 12/17/24 16:00 12/17/24 16:36 10 MG Diltiazem HCl 120 mg DAILY PO 12/18/24 10:00 12/21/24 11:24 120 MG objective General: the patient is well developed and nourished. No acute distress. MENTAL STATUS: Subjective SPEECH, LANGUAGE, HIGHER CORTICAL FUNCTION: She has mild dysnomia/aphasia, comprehension is normal, speech is clear CRANIAL NERVES: Pupils are equal, round and reactive. EOMs full and conjugate. Facial sensation intact in all three divisions bilaterally. Mandibular strength intact. Facial muscles symmetrical and strength intact. SENSATION: Sensation to touch and pinprick is normal. MOTOR: Normal tone in the upper and lower extremity. Normal muscle bulk. No fasciculations. No abnormal movements or posturing. Muscle strength of the major groups in the extremities is 5/5. REFLEXES: Deep tendon reflexes normal and symmetrical. No pathological reflexes. CEREBELLAR/COORDINATION: Finger to nose is normal bilaterally. GAIT/STATION: deferred. laboratory and microbiology Laboratory Tests 12/20/24 05:06 Test 12/20/24 05:06 Range/Units Serum Glucose 94 74-106 mg/dL Problem List Stroke, likely secondary to heart catheterization Dysnomia/aphasia, secondary to acute stroke Assessment/Plan Monitoring Supportive treatment Telemetry EDI to rule out cardioembolic source Aspirin 81 mg daily Lipitor 40 mg daily Speech pathology More recommendation per clinical course This medical document was created using an electronic medical record system with [employer] dictation system. Although this document has been carefully reviewed, there may still be some phonetic and typographical errors. These areas are purely typographical due to imperfections of the software programs, and do not reflect any compromise in the patient's medical c Prognosis poor Dietary Evaluation Review Comments: Continue current POC Expected Outcomes/Goals: To meet >75% estimated needs Fu 5-7 days Plan discussed with: Patient, Daughter, Other MATT GARCIA MD Dec 21, 2024 14:40
--- NOTE | 2024-12-21 20:25 | DVHPN2 ---
Progress Note - Dictate Date Seen: Dec 21, 2024 Has the PT tested + for MRSA If YES, has PT been informed?: No Medical Necessity Reason Pt with a Central, PICC or Fol: No Subjective Patient was seen and evaluated in follow up. No acute events overnight. Patient is doing better. A&Ox3. Carotid duplex reported no evidence of hemodynamically significant stenosis in the carotid arteries. vital signs Vital Sign Date Time Temp Pulse Resp B/P (MAP) Pulse Ox O2 Delivery O2 Flow Rate FiO2 12/21/24 17:00 97.6 86 20 133/72 (92) 97 97.6 12/21/24 07:31 Room Air* 0 21 Total Intake and Output 12/20/24 12/20/24 12/21/24 15:00 23:00 07:00 Intake Total 340 ml 200 ml Balance 340 ml 200 ml medications Current Medications Medications Dose Ordered Sig/Amos Route Start Time Stop Time Status Last Admin Dose Admin Aspirin 81 mg DAILY PO 12/17/24 10:00 12/21/24 11:20 81 MG Atorvastatin Calcium 40 mg HS PO 12/17/24 22:00 12/20/24 21:31 40 MG Morphine Sulfate 2 mg Q30MP PRN IV 12/16/24 22:45 Acetaminophen 325 mg Q4HP PRN PO 12/16/24 22:45 12/18/24 09:51 325 MG Docusate Sodium 100 mg DAILY PO 12/17/24 10:00 12/21/24 11:20 100 MG Ondansetron HCl 4 mg Q4HP PRN IV 12/16/24 22:45 Nitroglycerin 0.4 mg Q5MINP PRN SL 12/16/24 22:45 12/17/24 09:28 0.4 MG Bisacodyl 10 mg DAILYP PRN [place] 12/17/24 16:00 12/17/24 16:36 10 MG Diltiazem HCl 120 mg DAILY PO 12/18/24 10:00 12/21/24 11:24 120 MG objective Vitals and nursing notes reviewed. General Appearance: Cooperative, No acute distress HEENT: Atraumatic, PERRLA, EOMI, Mucous membr. moist/pink Respiratory: Clear to auscultation, Normal air movement Cardiovascular: Regular rate, Normal S1, Normal S2, No murmurs Abdominal: Normal bowel sounds, Soft, No tenderness, No hepatospenomegaly, No masses Extremities: No clubbing, No cyanosis, No edema, Normal pulses, No tenderness/swelling Skin: No rashes, No breakdown, No significant lesion Neuro: A&O x2-3. Coherent, Other (Neuro nonfocal) Psych/Mental Status: Mental status NL, Mood NL laboratory and microbiology Laboratory Tests 12/20/24 05:06 Test 12/20/24 05:06 Range/Units Serum Glucose 94 74-106 mg/dL Problem List Chest pain Elevated Troponin Hyperlipidemia Essential hypertension, likely new diagnosis patient unaware Stroke, likely secondary to heart catheterization Dysnomia/aphasia, secondary to acute stroke Assessment/Plan Continue current supportive medical care. Cardiology reconsulted. S/p [facility] 12/16. EDI ordered to rule out cardioembolic source- scheduled tomorrow. NPO at midnight. Neurology following. ASA and Statin therapy. Cardizem ER 120 mg PO daily. Optimization of BP. Pain management prn. Additional plan as per the hospital course. Dietary Evaluation Review Comments: Continue current POC Expected Outcomes/Goals: To meet >75% estimated needs Fu 5-7 days Plan discussed with: Patient, Other (RN) KEKE ALMARAZ DO Dec 21, 2024 20:25
--- NOTE | 2024-12-21 23:52 | DVHPN2 ---
Progress Note - Dictate Date Seen: Dec 21, 2024 Has the PT tested + for MRSA If YES, has PT been informed?: No Medical Necessity Reason Pt with a Central, PICC or Fol: No Subjective Patient was seen and evaluated in follow up. Patient reports feeling well today. Carotid duplex reported no evidence of hemodynamically significant stenosis in the carotid arteries. Patient is scheduled for EDI tomorrow. Telemetry reviewed. vital signs Vital Sign Date Time Temp Pulse Resp B/P (MAP) Pulse Ox O2 Delivery O2 Flow Rate FiO2 12/21/24 21:00 97.6 77 18 131/64 (86) 95 97.6 12/21/24 20:00 Room Air* 0 21 Total Intake and Output 12/20/24 12/20/24 12/21/24 15:00 23:00 07:00 Intake Total 340 ml 200 ml Balance 340 ml 200 ml medications Current Medications Medications Dose Ordered Sig/Amos Route Start Time Stop Time Status Last Admin Dose Admin Aspirin 81 mg DAILY PO 12/17/24 10:00 12/21/24 11:20 81 MG Atorvastatin Calcium 40 mg HS PO 12/17/24 22:00 12/21/24 21:32 40 MG Morphine Sulfate 2 mg Q30MP PRN IV 12/16/24 22:45 Acetaminophen 325 mg Q4HP PRN PO 12/16/24 22:45 12/18/24 09:51 325 MG Docusate Sodium 100 mg DAILY PO 12/17/24 10:00 12/21/24 11:20 100 MG Ondansetron HCl 4 mg Q4HP PRN IV 12/16/24 22:45 Nitroglycerin 0.4 mg Q5MINP PRN SL 12/16/24 22:45 12/17/24 09:28 0.4 MG Bisacodyl 10 mg DAILYP PRN [place] 12/17/24 16:00 12/17/24 16:36 10 MG Diltiazem HCl 120 mg DAILY PO 12/18/24 10:00 12/21/24 11:24 120 MG objective GENERAL: Alert and oriented x 3. No acute distress. EYES: PERRL, EOMI. Anicteric. HENT: Moist mucous membranes. LUNGS: Clear to auscultation bilaterally. CARDIOVASCULAR: Regular rate and rhythm. ABDOMEN: Soft, non-tender and non-distended. EXTREMITIES: No edema. NEUROLOGIC: No focal neurological deficits. SKIN: Warm, dry. laboratory and microbiology Laboratory Tests 12/20/24 05:06 Test 12/20/24 05:06 Range/Units Serum Glucose 94 74-106 mg/dL Problem List Chest pain. Elevated troponin. Hyperlipidemia. Essential hypertension. Stroke, likely secondary to heart catheterization. Dysnomia/aphasia, secondary to acute stroke. Assessment/Plan Continued all current supportive medical care. EDI. Aspirin, Lipitor. Diltiazem. Morphine for pain. Nitro SL. Additional plan as per the hospital course. Dietary Evaluation Review Comments: Continue current POC Expected Outcomes/Goals: To meet >75% estimated needs Fu 5-7 days Plan discussed with: Patient UBALDO ALMARAZ MD Dec 21, 2024 23:52
[2024-12-22] VITALS (11 sets, daily range): BP systolic 109–132; BP diastolic 46–69; PULSE 69–83; RESP 12–18; TEMP 97.6–99.2; O2SAT 95–99
[2024-12-22] MEDS: LIDOCAINE VISCOUS 2% 15ML UD PO ONE (13:40)
[2024-12-22] MEDS: MIDAZOLAM HCL 2MG/2ML 2ml VIAL (1mg/ml) IV ONE (13:41)
[2024-12-22] MEDS: fentaNYL CITRATE 100 MCG/2 ML VL IV ONE (13:43)
--- NOTE | 2024-12-22 15:28 | DVHOP2 ---
Operative Report - 2 Report Details Date: 12/22/24 Preop Diagnosis: Rule out ASD. Atrial thrombus. Postop Diagnosis: Normal EDI. Surgeon: Gianna Silva MD Anesthesiologist: Conscious sedation Anesthesia: Mac, Local Consent: The patient was informed of the risks and benefits of the procedure. These include but are not limited to complications of anesthesia, postoperative infection, incomplete relief of symptoms, recurrence of symptoms, damage to blo od vessels, nerves and tendons, deep venous thrombosis, pulmonary embolism and possible need for repeat surgery in the future. Complications: No complications Findings: Normal EDI. Indications for Surgery: TIA. Name of Procedure Performed Transesophageal echocardiogram Procedure Details Procedure Details: Prior full informed consent obtained the patient was placed in left lateral decubitus position transesophageal probe passed after patient was given lidocaine spray for gargling and conscious sedation. Standard views obtained without complications. Transgastric views were also obtained. Findings: Technically good study. Sinus rhythm. Normal chamber sizes. Normal valves. EF of 55% with normal RV function. Doppler reveals mild TR and mild MR. No pericardial effusion masses or vegetations. No atrial or ventricular septal defects noted. Bubble study negative. Condition Good Disposition Still a Patient Date of Service: Dec 22, 2024 Billing Provider: GIANNA SILVA Sr., MD Cardiology Common Codes: 96684-KROPIMY INP/OBS CARE (High) Cardiology Procedure Codes: 17911-QRZ W/IMG DOC INCL PROB ACQ GIANNA SILVA Sr., MD Dec 22, 2024 15:27
--- NOTE | 2024-12-22 20:34 | DVHPN2 ---
Progress Note - Dictate Date Seen: Dec 22, 2024 Has the PT tested + for MRSA If YES, has PT been informed?: No Medical Necessity Reason Pt with a Central, PICC or Fol: No Subjective Patient was seen and evaluated in follow up. No acute events overnight. No complaints. She is doing better today, no problems noted with speaking. Underwent EDI. Per report: EF of 55% with normal RV function, no pericardial effusion masses or vegetations, no atrial or ventricular septal defects noted, bubble study negative. vital signs Vital Sign Date Time Temp Pulse Resp B/P (MAP) Pulse Ox O2 Delivery O2 Flow Rate FiO2 12/22/24 17:00 99.2 78 18 119/67 (84) 96 99.2 12/22/24 08:00 Room Air* 0 21 Total Intake and Output 12/21/24 12/21/24 12/22/24 15:00 23:00 07:00 Intake Total 480 ml 200 ml Balance 480 ml 200 ml medications Current Medications Medications Dose Ordered Sig/Amos Route Start Time Stop Time Status Last Admin Dose Admin Aspirin 81 mg DAILY PO 12/17/24 10:00 12/22/24 09:13 81 MG Atorvastatin Calcium 40 mg HS PO 12/17/24 22:00 12/21/24 21:32 40 MG Morphine Sulfate 2 mg Q30MP PRN IV 12/16/24 22:45 Acetaminophen 325 mg Q4HP PRN PO 12/16/24 22:45 12/18/24 09:51 325 MG Docusate Sodium 100 mg DAILY PO 12/17/24 10:00 12/22/24 09:14 100 MG Ondansetron HCl 4 mg Q4HP PRN IV 12/16/24 22:45 Nitroglycerin 0.4 mg Q5MINP PRN SL 12/16/24 22:45 12/17/24 09:28 0.4 MG Bisacodyl 10 mg DAILYP PRN SD 12/17/24 16:00 12/17/24 16:36 10 MG Diltiazem HCl 120 mg DAILY PO 12/18/24 10:00 12/22/24 09:13 120 MG objective Vitals and nursing notes reviewed. General Appearance: Cooperative, No acute distress HEENT: Atraumatic, PERRLA, EOMI, Mucous membr. moist/pink Respiratory: Clear to auscultation, Normal air movement Cardiovascular: Regular rate, Normal S1, Normal S2, No murmurs Abdominal: Normal bowel sounds, Soft, No tenderness, No hepatospenomegaly, No masses Extremities: No clubbing, No cyanosis, No edema, Normal pulses, No tenderness/swelling Skin: No rashes, No breakdown, No significant lesion Neuro: A&O x3. Nonfocal Psych/Mental Status: Mental status NL, Mood NL laboratory and microbiology Laboratory Tests 12/20/24 05:06 Test 12/20/24 05:06 Range/Units Serum Glucose 94 74-106 mg/dL Problem List Chest pain Elevated Troponin Hyperlipidemia Essential hypertension, likely new diagnosis patient unaware Stroke, likely secondary to heart catheterization Dysnomia/aphasia, secondary to acute stroke Assessment/Plan Continue current supportive medical care. Cardiology reconsulted. S/p [facility] 12/16. S/p EDI. Neurology following. ASA and Statin therapy. Cardizem ER 120 mg PO daily. Optimization of BP. Resume diet. Pain management prn. Additional plan as per the hospital course. Dietary Evaluation Review Comments: Continue current POC Expected Outcomes/Goals: To meet >75% estimated needs Fu 5-7 days Plan discussed with: Patient, Other (RN) KEKE ALMARAZ DO Dec 22, 2024 20:34
--- NOTE | 2024-12-22 22:16 | DVHPN2 ---
Progress Note - Dictate Date Seen: Dec 22, 2024 Has the PT tested + for MRSA If YES, has PT been informed?: No Medical Necessity Reason Pt with a Central, PICC or Fol: No Subjective Ms. Breaux is a 73 years old female with a history of dyslipidemia, she came to the [facility] [place] on 12/10 11/25 with a chief complaint of chest pain, but she also developed new problems in the hospital I have seen examined the patient, talked to her nurse, daughter in the room with her, she is doing better today, alert oriented x3, she does not have much problem with speaking today Urinalysis, 12/16/2024: WBC: 2, urine leukocyte esterase: 2+ CBC, 12/17/2024: Unremarkable CMP, 12/17/2024: Unremarkable Troponin one high sensitivity, 12/16/2024: 1501 TG/HDL/LDL/HDL, 12/17/2024: 99/139/76/52 Echocardiogram, 12/18/2024: MILD LVH AND MILD LV DIASTOLIC DYSFUNCTION LV EF IS 65% NORMAL VALVES NO EFFUSION NORMAL RV FUNCTION AND SIZE EDI, 12/22/2024:Normal chamber sizes. Normal valves. EF of 55% with normal RV function. Doppler reveals mild TR and mild MR. No pericardial effusion masses or vegetations. No atrial or ventricular septal defects noted. Bubble study negative. Carotid Doppler, 12/21/2024: No evidence of hemodynamically significant stenosis in the carotid arteries. MRI head, 12/18/2024: Foci of acute infarct involving the bilateral cerebellum, right mesial temporal lobe, right occipitotemporal region, left thalamus, left mesial occipital lobe and left high convexity frontal lobe. Correlate for Possible embolic process vital signs Vital Sign Date Time Temp Pulse Resp B/P (MAP) Pulse Ox O2 Delivery O2 Flow Rate FiO2 12/22/24 17:00 99.2 78 18 119/67 (84) 96 99.2 12/22/24 08:00 Room Air* 0 21 Total Intake and Output 12/21/24 12/21/24 12/22/24 15:00 23:00 07:00 Intake Total 480 ml 200 ml Balance 480 ml 200 ml medications Current Medications Medications Dose Ordered Sig/Amos Route Start Time Stop Time Status Last Admin Dose Admin Aspirin 81 mg DAILY PO 12/17/24 10:00 12/22/24 09:13 81 MG Atorvastatin Calcium 40 mg HS PO 12/17/24 22:00 12/22/24 22:01 40 MG Morphine Sulfate 2 mg Q30MP PRN IV 12/16/24 22:45 Acetaminophen 325 mg Q4HP PRN PO 12/16/24 22:45 12/18/24 09:51 325 MG Docusate Sodium 100 mg DAILY PO 12/17/24 10:00 12/22/24 09:14 100 MG Ondansetron HCl 4 mg Q4HP PRN IV 12/16/24 22:45 Nitroglycerin 0.4 mg Q5MINP PRN SL 12/16/24 22:45 12/17/24 09:28 0.4 MG Bisacodyl 10 mg DAILYP PRN [place] 12/17/24 16:00 12/17/24 16:36 10 MG Diltiazem HCl 120 mg DAILY PO 12/18/24 10:00 12/22/24 09:13 120 MG objective General: the patient is well developed and nourished. No acute distress. MENTAL STATUS: Subjective SPEECH, LANGUAGE, HIGHER CORTICAL FUNCTION: Subjective CRANIAL NERVES: Pupils are equal, round and reactive. EOMs full and conjugate. Facial sensation intact in all three divisions bilaterally. Mandibular strength intact. Facial muscles symmetrical and strength intact. SENSATION: Sensation to touch and pinprick is normal. MOTOR: Normal tone in the upper and lower extremity. Normal muscle bulk. No fasciculations. No abnormal movements or posturing. Muscle strength of the major groups in the extremities is 5/5. REFLEXES: Deep tendon reflexes normal and symmetrical. No pathological reflexes. CEREBELLAR/COORDINATION: Finger to nose is normal bilaterally. GAIT/STATION: deferred. laboratory and microbiology Laboratory Tests 12/20/24 05:06 Test 12/20/24 05:06 Range/Units Serum Glucose 94 74-106 mg/dL Problem List Stroke, likely secondary to heart catheterization Dysnomia/aphasia, secondary to acute stroke, resolving Assessment/Plan Monitoring Supportive treatment Telemetry Aspirin 81 mg daily Lipitor 40 mg daily Speech pathology Follow up with her doctors RUTH on discharge More recommendation per clinical course Okay to discharge from a neurologic point of view This medical document was created using an electronic medical record system with [employer] dictation system. Although this document has been carefully reviewed, there may still be some phonetic and typographical errors. These areas are purely typographical due to imperfections of the software programs, and do not reflect any compromise in the patient's medical c Prognosis poor Dietary Evaluation Review Comments: Continue current POC Expected Outcomes/Goals: To meet >75% estimated needs Fu 5-7 days Plan discussed with: Patient, Other MATT GARCIA MD Dec 22, 2024 22:16
--- NOTE | 2024-12-22 22:56 | DVHPN2 ---
Progress Note - Dictate Date Seen: Dec 22, 2024 Has the PT tested + for MRSA If YES, has PT been informed?: No Medical Necessity Reason Pt with a Central, PICC or Fol: No Subjective Patient was seen and evaluated in follow up. Patient complains of generalized pain. Patient underwent transesophageal echocardiogram, EF of 55% with normal RV function, no pericardial effusion masses or vegetations, no atrial or ventricular septal defects noted, bubble study negative. Telemetry reviewed. vital signs Vital Sign Date Time Temp Pulse Resp B/P (MAP) Pulse Ox O2 Delivery O2 Flow Rate FiO2 12/22/24 14:37 69 12 113/50 (71) 98 12/22/24 09:00 98.0 98.0 12/22/24 08:00 Room Air* 0 21 Total Intake and Output 12/21/24 12/21/24 12/22/24 15:00 23:00 07:00 Intake Total 480 ml 200 ml Balance 480 ml 200 ml medications Current Medications Medications Dose Ordered Sig/Amos Route Start Time Stop Time Status Last Admin Dose Admin Aspirin 81 mg DAILY PO 12/17/24 10:00 12/22/24 09:13 81 MG Atorvastatin Calcium 40 mg HS PO 12/17/24 22:00 12/21/24 21:32 40 MG Morphine Sulfate 2 mg Q30MP PRN IV 12/16/24 22:45 Acetaminophen 325 mg Q4HP PRN PO 12/16/24 22:45 12/18/24 09:51 325 MG Docusate Sodium 100 mg DAILY PO 12/17/24 10:00 12/22/24 09:14 100 MG Ondansetron HCl 4 mg Q4HP PRN IV 12/16/24 22:45 Nitroglycerin 0.4 mg Q5MINP PRN SL 12/16/24 22:45 12/17/24 09:28 0.4 MG Bisacodyl 10 mg DAILYP PRN [place] 12/17/24 16:00 12/17/24 16:36 10 MG Diltiazem HCl 120 mg DAILY PO 12/18/24 10:00 12/22/24 09:13 120 MG objective GENERAL: Alert and oriented x 3. No acute distress. EYES: PERRL, EOMI. Anicteric. HENT: Moist mucous membranes. LUNGS: Clear to auscultation bilaterally. CARDIOVASCULAR: Regular rate and rhythm. ABDOMEN: Soft, non-tender and non-distended. EXTREMITIES: No edema. NEUROLOGIC: No focal neurological deficits. SKIN: Warm, dry. laboratory and microbiology Laboratory Tests 12/20/24 05:06 Test 12/20/24 05:06 Range/Units Serum Glucose 94 74-106 mg/dL Problem List Chest pain. Elevated troponin. Hyperlipidemia. Essential hypertension. Stroke, likely secondary to heart catheterization. Dysnomia/aphasia, secondary to acute stroke. Assessment/Plan Continued all current supportive medical care. Aspirin, Lipitor. Diltiazem. Morphine and Tylenol for pain management. Nitro SL. Additional plan as per the hospital course. Dietary Evaluation Review Comments: Continue current POC Expected Outcomes/Goals: To meet >75% estimated needs Fu 5-7 days Plan discussed with: Patient UBALDO ALMARAZ MD Dec 22, 2024 17:07
[2024-12-23 01:00] VITALS: BP 118/67; PULSE 74; RESP 16; TEMP 98.3; O2SAT 96
[2024-12-23 04:48] VITALS: BP 139/72; PULSE 75; RESP 16; TEMP 98.1; O2SAT 97
[2024-12-23 08:00] VITALS: PULSE 73; PULSE 79; RESP 18; O2SAT 97
[2024-12-23 09:00] VITALS: BP 125/69; PULSE 82; RESP 18; TEMP 98.4; O2SAT 97
[2024-12-23] MEDS ORDERED: ATOR20TA50 PO (10:36)
[2024-12-23] MEDS ORDERED: ASPI-325 PO (10:36)
[2024-12-23 12:35] VITALS: BP 133/73; PULSE 75; RESP 16; TEMP 98.7; O2SAT 95
--- NOTE | 2024-12-23 13:12 | DVHPN2 ---
Progress Note - Dictate Date Seen: Dec 23, 2024 Has the PT tested + for MRSA If YES, has PT been informed?: No Medical Necessity Reason Pt with a Central, PICC or Fol: No Subjective Patient was seen and evaluated in follow up. No overnight events. complains of generalized pain. Patient is cardiac stable for discharge. Telemetry reviewed. vital signs Vital Sign Date Time Temp Pulse Resp B/P (MAP) Pulse Ox O2 Delivery O2 Flow Rate FiO2 12/23/24 12:35 98.7 75 16 133/73 (93) 95 98.7 12/23/24 08:00 Room Air* 0 21 Total Intake and Output 12/22/24 12/22/24 12/23/24 15:00 23:00 07:00 Intake Total 118 ml 800 ml Balance 118 ml 800 ml medications Current Medications Medications Dose Ordered Sig/Amos Route Start Time Stop Time Status Last Admin Dose Admin Aspirin 81 mg DAILY PO 12/17/24 10:00 12/23/24 11:09 81 MG Atorvastatin Calcium 40 mg HS PO 12/17/24 22:00 12/22/24 22:01 40 MG Morphine Sulfate 2 mg Q30MP PRN IV 12/16/24 22:45 Acetaminophen 325 mg Q4HP PRN PO 12/16/24 22:45 12/18/24 09:51 325 MG Docusate Sodium 100 mg DAILY PO 12/17/24 10:00 12/23/24 11:09 100 MG Ondansetron HCl 4 mg Q4HP PRN IV 12/16/24 22:45 Nitroglycerin 0.4 mg Q5MINP PRN SL 12/16/24 22:45 12/17/24 09:28 0.4 MG Bisacodyl 10 mg DAILYP PRN [place] 12/17/24 16:00 12/17/24 16:36 10 MG Diltiazem HCl 120 mg DAILY PO 12/18/24 10:00 12/23/24 11:10 120 MG objective GENERAL: Alert and oriented x 3. No acute distress. EYES: PERRL, EOMI. Anicteric. HENT: Moist mucous membranes. LUNGS: Clear to auscultation bilaterally. CARDIOVASCULAR: Regular rate and rhythm. ABDOMEN: Soft, non-tender and non-distended. EXTREMITIES: No edema. NEUROLOGIC: No focal neurological deficits. SKIN: Warm, dry. laboratory and microbiology Laboratory Tests 12/20/24 05:06 Test 12/20/24 05:06 Range/Units Serum Glucose 94 74-106 mg/dL Problem List Chest pain. Elevated troponin. Hyperlipidemia. Essential hypertension. Stroke, likely secondary to heart catheterization. Dysnomia/aphasia, secondary to acute stroke. Assessment/Plan Continued all current supportive medical care. Aspirin, Lipitor. Diltiazem. Morphine and Tylenol for pain management. Nitro SL. Additional plan as per the hospital course. Dietary Evaluation Review Comments: Continue current POC Expected Outcomes/Goals: To meet >75% estimated needs Fu 5-7 days Plan discussed with: Patient UBALDO ALMARAZ MD Dec 23, 2024 12:55
[2024-12-23 16:58] VITALS: BP 132/72; PULSE 75; RESP 16; TEMP 97.8; O2SAT 95
--- NOTE | 2024-12-23 19:31 | DVHDS2 ---
Discharge Summary Date of Admission Dec 16, 2024 at 19:44 Date of Discharge: Dec 23, 2024 Admitting Diagnosis Chest pain Labs/Diagnostic Data: Laboratory Results Test 12/20/24 05:06 12/20/24 04:50 12/19/24 23:30 12/17/24 06:20 White Blood Count 5.1 10^3/uL (4.4-10.8) Red Blood Count 4.54 10^6/uL (4.0-5.20) Hemoglobin 14.6 g/dL (12.2-16.2) Hematocrit 42.2 % (36.0-46.0) Mean Corpuscular Volume 93.0 fL (80.0-100.0) Mean Corpuscular Hemoglobin 32.1 pg (28.0-32.0) Mean Corpuscular Hemoglobin Concent 34.5 g/dL (32.0-36.0) Red Cell Distribution Width 12.2 % (11.8-14.3) Platelet Count 260 10^3/uL (140-450) Mean Platelet Volume 8.7 fL (6.9-10.8) Neutrophils (%) (Auto) 50.8 % (37.0-80.0) Lymphocytes (%) (Auto) 34.0 % (10.0-50.0) Monocytes (%) (Auto) 8.1 % (0.0-12.0) Eosinophils (%) (Auto) 6.3 % (0.0-7.0) Basophils (%) (Auto) 0.8 % (0.0-2.0) Neutrophils # (Auto) 2.6 10 ^3/uL (1.6-8.6) Lymphocytes # (Auto) 1.7 10 ^3/uL (0.4-5.4) Monocytes # (Auto) 0.4 10 ^3/uL (0-1.3) Eosinophils # (Auto) 0.3 10 ^3/uL (0-0.8) Basophils # (Auto) 0 10 ^3/uL (0-0.2) Nucleated Red Blood Cells 0.2 % Prothrombin Time 10.9 sec (9.3-11.8) Prothrombin Time INR 1.03 (0.9-1.15) Activated Partial Thromboplast Time 26.8 SEC (24.5-34.5) Sodium Level 143 mmol/L (136-145) Potassium Level 4.2 mmol/L (3.5-5.1) Chloride Level 109 mmol/L (98-107) Carbon Dioxide Level 26 mmol/L (20-31) Anion Gap 8 (5-15) Blood Urea Nitrogen 16 mg/dL (9-23) Creatinine 0.80 mg/dL (0.550-1.02) Glomerular Filtration Rate Calc 78 mL/min (>90) BUN/Creatinine Ratio 20.0 (10.0-20.0) Serum Glucose 94 mg/dL (74-106) Calcium Level 9.8 mg/dL (8.7-10.4) Total Bilirubin 0.8 mg/dL (0.2-1.0) Aspartate Amino Transferase (AST) 29 U/L (<34) Alanine Aminotransferase (ALT) 29 U/L (7-40) Alkaline Phosphatase 77 U/L (46-116) Total Protein 6.3 g/dL (5.7-8.2) Albumin 4.1 g/dL (3.2-4.8) Urine Color Light-yellow (Yellow) Urine Clarity Clear (Clear) Urine pH 5.5 (5.0-9.0) Urine Specific [place] 1.011 (1.001-1.035) Urine Protein Negative (Negative) Urine Ketones Negative (Negative) Urine Blood Negative /uL (Negative) Urine Nitrite Negative (Negative) Urine Bilirubin Negative (Negative) Urine Urobilinogen Normal mg/dL (Negative) Urine Leukocyte Esterase 2+ /uL (Negative) Urine RBC 2 /hpf (0 - 4) Urine Microscopic WBC 6 /HPF (0-5) Urine Squamous Epithelial Cells Few /hpf (<5) Urine Bacteria None seen /hpf (None Seen) Urine Glucose Normal mg/dL (Normal) Beta HCG, Quantitative 4.8 mIU/mL (1.5-4.2) Creatine Kinase 104 U/L (34-145) B-Type Natriuretic Peptide 91.68 pg/mL (0-100) Triglycerides Level 99 mg/dL (< 150) Cholesterol Level 139 mg/dL (< 200) LDL Cholesterol 76 mg/dL (< 100) HDL Cholesterol 52 mg/dL (40-59) Test 12/16/24 18:00 12/16/24 15:10 Troponin I High Sensitivity 1501 ng/L (</=34) Magnesium Level 2.2 mg/dL (1.6-2.6) Other Laboratory Tests 12/20/24 05:06 Brief Hx & Hospital Course: Ruthann Breaux is a 73-year-old female with a Past Medical History pertinent for Hyperlipidemia who presented to the hospital on 12/16/24 with complaint of midsternal chest pain radiating to her left chest wall and up to the jaw. While in ED, patient was found to have abnormal ST segment changes and elevated troponins 67, 464, 1500. Code STEMI was called. Neurology Technician, Dr. Silva, consulted and patient underwent left heart catheterization; bilateral cine coronary angiography; left ventriculography.Per report: Normal left ventricular end-diastolic pressure at rest; normal left ventricular ejection fraction; no significant coronary artery disease. Echocardiogram reported: Mild LVH and mild LV diastolic dysfunction; LV EF is 65%; normal valves; no effusion; normal RV function and size. Patient also complained of new onset lightheadedness with some confusion. Patient had difficulty getting words out, she also did not remember where her daughter lived. CT Head reported no intracranial hemorrhage or mass effect; moderate to advanced chronic microvascular ischemic changes. MRI head, 12/18/2024: Foci of acute infarct involving the bilateral cerebellum, right mesial temporal lobe, right occipitotemporal region, left thalamus, left mesial occipital lobe and left high convexity frontal lobe; correlate for Possible embolic process. Carotid Doppler performed on 12/21/2024 reported no evidence of hemodynamically significant stenosis in the carotid arteries. EDI performed on 12/22/2024. Per report: Normal chamber sizes; Normal valves; EF of 55% with normal RV function; Doppler reveals mild TR and mild MR; No pericardial effusion masses or vegetations; No atrial or ventricular septal defects noted. Bubble study negative. Patient's acute symptoms have overall stabilized and improved. Patient is doing better today, alert oriented x3. No issues noted when speaking. Patient is cleared for discharge to include from specialists standpoints and is stable at the time of discharge. Vitals and nursing notes reviewed. General Appearance: Cooperative, No acute distress HEENT: Atraumatic, PERRLA, EOMI, Mucous membr. moist/pink Respiratory: Clear to auscultation, Normal air movement Cardiovascular: Regular rate, Normal S1, Normal S2, No murmurs Abdominal: Normal bowel sounds, Soft, No tenderness, No hepatospenomegaly, No masses Extremities: No clubbing, No cyanosis, No edema, Normal pulses, No tenderness/swelling Skin: No rashes, No breakdown, No significant lesion Neuro: A&O x3. Nonfocal Psych/Mental Status: Mental status NL, Mood NL Consults/Reason for consult Cardiology - Reason for consultation: NSTEMI, Chest pain, EDI Neurology - Reason for consultation- Lightheadedness Operations or Procedures Cardiac cath on 12/16/2024 EDI on 12/22/2024 Condition at Discharge: Good Final Diagnosis/Problems List Chest pain Elevated Troponin Hyperlipidemia Essential hypertension, likely new diagnosis patient unaware Stroke, likely secondary to heart catheterization Dysnomia/aphasia, secondary to acute stroke Discharge Disposition: Home Discharge Instruct/Medications Diet: Cardiac 2g Na,low cholest Diet comment: Low fat diet 2 grams sodium restrictions Activity: No Restrictions, As Tolerated Follow Up/Referral: Primary care doctor in 1-2 weeks Outpatient Psychologist referral Medications: See list Scheduled Aspirin (Aspirin Low Dose), 81 MG PO DAILY Atorvastatin Calcium (Atorvastatin Calcium), 40 MG PO HS Discontinued Medications Atorvastatin Calcium (Atorvastatin Calcium), 1 TAB PO DAILY, (Reported) Discharge Statement: "Patient was advised to return to the ER or call 911 if any headaches, dizziness, shortness of breath, chest pain, abdominal pain, bleeding, fevers, or worsening of medical condition. Patient was counseled about treatment plan, medications, possible side effects, patientverbalized understanding. All questions were answered to the best of my ability. This discharge took greater then 30 minutes in planning, reviewing documentation, counseling the patient, and discussing with other team members." ASSESSMENT ASSESSMENT Assessment Chest Pain Generalized Anxiety Acute stroke KEKE ALMARAZ DO Dec 23, 2024 19:31
== END 2024-12-23 16:48 | disposition home or self-care (01) | DRG 280 ==
LOC: ER 15:03 → OVERFLOW 19:44 → TELE-WESTW 21:20
PROVIDERS: ADMIT Internal Medicine Nephrology; ATTEND Internal Medicine Nephrology
PROC: 4A023N7 Measurement of Cardiac Sampling and Pressure, Left Heart, Percutaneous Approach (ICD-10-PCS; principal; 2024-12-16)
PROC: B211YZZ Fluoroscopy of Multiple Coronary Arteries using Other Contrast (ICD-10-PCS; 2024-12-16)
PROC: B215YZZ Fluoroscopy of Left Heart using Other Contrast (ICD-10-PCS; 2024-12-16)
PROC: B24BZZ4 Ultrasonography of Heart with Aorta, Transesophageal (ICD-10-PCS; 2024-12-22)
DX: I25.10 Atherosclerotic heart disease of native coronary artery without angina pectoris (principal); I63.89 Other cerebral infarction; I21.A1 Myocardial infarction type 2; R47.01 Aphasia; G90.1 Familial dysautonomia [Riley-Day]; I10 Essential (primary) hypertension; E78.5 Hyperlipidemia, unspecified; F41.1 Generalized anxiety disorder; Z90.49 Acquired absence of other specified parts of digestive tract; Z79.82 Long term (current) use of aspirin; Z90.710 Acquired absence of both cervix and uterus; Z79.899 Other long term (current) drug therapy; Z88.0 Allergy status to penicillin; Z88.5 Allergy status to narcotic agent
CPT/HCPCS: 36415; 70450; 70551; 71045; 80048; 80053; 80061; 81001; 82550; 83735; 83880; 84484; 84702; 85025; 85610; 85730; 86850; 86900; 86901; 92523; 93005; 93306; 93312; 93458; 93886; 96372; 97162; 99152; 99291; 99292; G0378; J2250; Q9967